=== PATIENT | female | born 1945 | race Caucasian/White ===

== ENCOUNTER → 2018-09-01 06:03 | Outpatient (CLI) | payer MEDICARE, SELFPAY ==
--- NOTE | 2018-09-01 | DI.US.S_ITS ---
PROCEDURE: US EXTREMITY NONVASC LOWER RT INDICATIONS: POSSIBLE DAS'S CYST RIGHT KNEE TECHNIQUE: Real-time scanning was performed of the posterior right knee, with image documentation. COMPARISON: None. FINDINGS: Ultrasound examination of right popliteal fossa shows no fluid collection or solid-appearing mass. IMPRESSION: No popliteal cyst or solid mass is seen in popliteal fossa. The Dictated by: Robbie Pineda M.D. on 09/01/2018 at 10:10 Approved by: Robbie Pineda M.D. on 09/01/2018 at 10:14
--- NOTE | 2018-09-01 | DI.MRI.S_ITS ---
PROCEDURE: MR LUMBAR SPINE WO CON INDICATIONS: POSSIBLE DAS'S CYST RIGHT KNEE TECHNIQUE: Noncontrast sagittal T1 spin echo and T2 fast echo, sagittal STIR, axial T1 and T2 fast spin echo through the lumbar spine. In cases with scoliosis, additional coronal T2 fast spin echo may be performed. COMPARISON: [facility], , L-SPINE WITHOUT CONTRAST, 01/24/2017, 12:48. FINDINGS: Image quality: Excellent. Alignment and Curvature: There is grade 1 anterolisthesis of L4 on L5, unchanged from previous study. Minimal anterolisthesis of L5 on S1 is also seen and unchanged. Bone Marrow: Marrow is of normal overall signal. No acute vertebral body compression fractures. Spinal Cord: Conus medullaris terminates at the L1 level. Visualized cord demonstrates normal signal and size. Paraspinous Soft Tissues: No paravertebral masses. L1-L2: Normal appearance. L2-L3: Normal appearance. L3-L4: Minimal disc bulge and bilateral facet arthrosis is seen, no significant canal stenosis or neural foramina narrowing. L4-L5: There is broad-based disc bulge and bilateral facet arthrosis causing mild central canal stenosis and bilateral neuroforaminal narrowing slightly worse on the right side progressed since 2017 study. L5-S1: There is broad-based disc bulge and bilateral facet arthrosis. No significant central canal stenosis. Left worsening right bilateral neuroforaminal narrowing is again seen, not significantly changed from prior study. IMPRESSION: 1. Worsening degenerative disc bulge and bilateral facet arthrosis at L4-5 level causing mild central canal stenosis and moderate bilateral neuroforaminal narrowing. 2. Stable appearing degenerative disc bulge and bilateral facet arthrosis at L3-4 and L5-S1 levels. Mild central canal stenosis and moderate to severe bilateral neuroforaminal narrowing at L5-S1 level is again seen and unchanged. 3. Stable appearing grade 1 anterolisthesis at L4-5 and L5-S1 levels. No marrow edema. No compression fracture. Dictated by: Robbie Pineda M.D. on 09/01/2018 at 11:46 Approved by: Robbie Pineda M.D. on 09/01/2018 at 11:56
== END ==
PROVIDERS: PCP Registered Nurse; Visit Provider Registered Nurse
DX: M51.26 Other intervertebral disc displacement, lumbar region (principal); M51.27 Other intervertebral disc displacement, lumbosacral region; M47.816 Spondylosis without myelopathy or radiculopathy, lumbar region; M47.817 Spondylosis without myelopathy or radiculopathy, lumbosacral region; M48.061 Spinal stenosis, lumbar region without neurogenic claudication; M48.07 Spinal stenosis, lumbosacral region; M43.16 Spondylolisthesis, lumbar region; M43.17 Spondylolisthesis, lumbosacral region
CPT/HCPCS: 72148; 76882

== ENCOUNTER 2019-02-07 09:59 | Inpatient (IN) | payer MEDICARE, SELFPAY ==
[2019-01-23 08:58] VITALS: BMI 40.7
[2019-02-07] VITALS (16 sets, daily range): BP systolic 94–156; BP diastolic 54–96; PULSE 69–79; RESP 10–19; TEMP 36.1–37; O2SAT 93–100; BMI 40.7
--- NOTE | 2019-02-07 | DI.RAD.S_ITS ---
PROCEDURE: XR LUMBAR SPINE 2-3V INDICATIONS: L4-5, L5-S1 TLIF TECHNIQUE: 2 operative views of the lumbar spine were acquired. COMPARISON: [facility], CR, XR LUMBAR SPINE FLEXION EXTENSION, 10/03/2018, 6:59. FINDINGS: Operative images demonstrate posterolateral reji and pedicle screw fixation from L4-S1 with placement of interbody material at L4-L5 and L5-S1. There is no radiographic evidence of complications. IMPRESSION: Operative imaging utilized during L4-S1 fusion. Dictated by: Shashi Cornejo M.D. on 02/07/2019 at 18:10 Approved by: Shashi Cornejo M.D. on 02/07/2019 at 18:11
--- NOTE | 2019-02-07 13:23 | PM.PREOP ---
Pre-operative Note Interval Note History & Physical reviewed/Exam performed by Physician: Yes Changes to H&P: No
[2019-02-07] MEDS: CEFAZOLIN 2 GM/100 ML FROZ.PIGGY IV ×2 (14:10→20:57)
--- NOTE | 2019-02-07 15:03 | SUR.OPER ---
Prone on spine table, head in foam head support, padded chest and pelvic supports, gel pad at knees, lower legs supported by pillows; nipples, genitalia and toes free of pressure, arms secured on foam padded arm boards at <90 degrees abduction. Tape over blanket at thigh secured to table.
[2019-02-07] MEDS: BUPIVACAINE LIPOSOME 266 MG/20 ML VIAL INJ (15:08)
[2019-02-07] MEDS: BUPIVACAINE 0.25% W/ EPI 30 ML VIAL INJ (15:09)
[2019-02-07] MEDS: ACETAMINOPHEN IV 1,000 MG/100 ML VIAL 400 MG IV (15:10)
[2019-02-07] MEDS: fentaNYL 100 MCG/2 ML INJ 50 MCG IV ×2 (18:29→18:35)
--- NOTE | 2019-02-07 18:29 | P.OP_ITS ---
Operative Date/Time/Diagnoses Date of procedure: 02/07/19 Time of procedure: 14:29 Pre-op diagnosis: 1. L4-5, L5-S1 spinal stenosis 2. L4-5, L5-S1 spondylolisthesis Post-op diagnosis: same Procedure & Clinicians Procedure: 1. L4-5, L5-S1 Postero-lateral and posterior interbody fusion 2. L4-5, L5-S1 interbody cage placement. 3. L4-5, L5-S1 decompressive laminectomy with bilateral facetecomies 4. L4-5, L5-S1 Posterior segmental instrumentation 5. [place] of bone marrow from iliac crest 6. Utilization of microsurgical technique and operating microscope Same procedure as scheduled: Yes Indications: Patient has been having chronic back pain and worsening lumbar radiculopathy. Patient failed multiple conservative management with worsening pain weakness and numbness in her lower extremity. Patient has been having difficulty performing activity of daily living. After discussing risks benefits of treatment options, patient elected proceed with surgery. Surgeon: Carol Ann Talley [employer] Director: Chastity Mcpherson Click Yes if Unassisted: No Anesthesia Type: General Operative Notes Closure Type: primary Specimen(s): none sent Prosthetic devices, grafts, tissues, transplants, or devices: Globus revolve screws, Rise cages Applied: catheter Estimated Blood Loss (mL): 100 Blood products transfused: none Procedure in detail: Patient was seen in the preoperative area. Risks and benefits of the surgery was discussed with the patient. Informed consent was obtained from the patient and placed in the chart. Surgical site was marked. Patient was taken to the operative room. General anesthesia was administered. Prophylactic antibiotic was given to the patient less than 30 min before the incision was made. Patient was placed into a prone position on the Jhoan table. Patient's back was then prepped and draped in the sterile fashion. Time- out was performed at this time. Using AP and lateral C-arm imaging the interval between L4-S1 was identified and marked on patient's back. A 2 inch incision 2 in from midline was made on the right side first. The fascia was incised in line with skin incision. Globus MARS retractors was placed inside the incision and docked onto the L4 and L5 lamina. Using microsurgical technique and operating microscope, a L4 and L5 laminectomy and L4-5 L5-S1 facetectomy was performed using a Kerrison rongeur. During the process of decompression more than 75% of bilateral L4-5 L5-S1 facets were removed in order to decompress the spinal canal and the lateral recess. The L4-5 L5-S1 level was grossly unstable after the decompression was completed and requiring the fusion procedure. The disc space at L4-5, L5-S1 was identified. And a total diskectomy was performed at L4-5, L5-S1 level. The endplates were decorticated using a rasp and shaver. The total diskectomy and d ecortication was performed at L4-5, L5-S1 level in order to to accomplish a L4- 5, L5-S1 fusion. The local bone from the laminectomy and facetectomy was saved for local bone grafting. After the total diskectomy and decortication was completed, Bio4 bone graft material was combined with local bone that was harvested earlier. At this time, a separate skin is incision was made over the iliac crest. A Jamshidi needle was inserted into the iliac crest through a separate skin incision. 5 cc of bone marrow aspiration was obtained through the separate skin incision using a Jamshidi needle from the iliac crest. The bone marrow aspiration was combined with local bone and the Bio4 bone grafting material. The bone grafting material was placed into the L4-5, L5-S1 interbody space along with two cages, one expandable cage at each level. The cages were expanded to their maximum height using the torque limiting screwdriver. At this time a mirror image incision was made on the left side. The fascia was incised in line with the skin incision. Globus MARS retractor was inserted and docked onto the L4-5, L5-S1 posterolateral gutter. Using the power drill, posterior-lateral decortication was performed at L4-5, L5-S1 level until bleeding cortical bone was identified. The remaining bone grafting material was placed into the L4-5 L5-S1 posterior lateral gutter he order to accomplish posterolateral fusion at the L4-5 L5-S1 levels. Using the double C-arm technique, pedicle screws were placed into the L4, L5, S1 pedicles bilaterally. This was done by placing the Jamshidi needle into the pedi cles, then placing the guidewires over the Jamshidi needle, and finally placing the cannulated screws over the guidewires bilaterally. After the pedicle screws were placed, 2 titanium rods was locked into the heads of the pedicle screws using locking caps and torque limiting screwdriver. Total 6 pedicles screws were placed. Threaded reducers were used to reduce patient's spondylolisthesis, which were appropriately reduced after the hardware was placed. After all the hardware was placed, and confirmed with AP and lateral C-arm imaging, the wound was then irrigated with sterile normal saline and packed with Ray-Ella gauze for 3 min to accomplish hemostasis. After the gauze was removed the deep fascia was closed with #1 Vicryl suture. The subcutaneous layer was closed with 2-0 Vicryl. The skin was closed with skin nedra. Patient tolerated the procedure well. There were no complications. Complications: none Post-operative Condition: stable Disposition: PACU Plan for aftercare: Admit to inpatient hospital
[2019-02-07] MEDS: SODIUM CHLORIDE 0.9% 1,000 ML 100 ML IV (19:40)
[2019-02-07] MEDS: OXYCODONE IR 5 MG TABLET 10 MG PO ×2 (19:42→22:47)
[2019-02-07] MEDS: SENNOSIDES 8.6 MG TABLET 17.2 MG PO (20:57)
[2019-02-07] MEDS: DOCUSATE 100 MG CAPSULE PO (20:57)
[2019-02-07] MEDS: HYDROMORPHONE 0.5 MG INJ IV (20:57)
--- NOTE | 2019-02-07 22:20 | PC.NURSE ---
Evening Shift Note- Patient arrived to room via bed from PACU at 1910. Admission questions completed, medications reviewed, and physical assessment done. patient oriented to bed and bed controls, room, bathroom, lights, phone, menu, and call ventura/tv remote. safety measures in place. call ventura and phone within reach. will continue to monitor.
[2019-02-07] MEDS: hydrOXYzine pamoate 25 MG CAPSULE PO (22:47)
[2019-02-08] VITALS (9 sets, daily range): BP systolic 108–142; BP diastolic 45–69; PULSE 59–86; RESP 16–18; TEMP 36.4–37.9; O2SAT 89–100
[2019-02-08] MEDS: OXYCODONE IR 5 MG TABLET 10 MG PO ×6 (03:40→22:27)
[2019-02-08] MEDS: CEFAZOLIN 2 GM/100 ML FROZ.PIGGY IV (05:21)
[2019-02-08 06:15] LABS: Hematocrit 36.4 % (36-46); Hemoglobin 12.4 g/dL (12.0-16.0)
[2019-02-08] MEDS: DOCUSATE 100 MG CAPSULE PO ×2 (08:44→20:25)
[2019-02-08] MEDS: LOSARTAN 50 MG TABLET 100 MG PO (08:45)
[2019-02-08] MEDS: hydroCHLOROthiazide 25 MG TABLET PO (08:45)
[2019-02-08] MEDS: PANTOPRAZOLE 20 MG TABLET PO (08:45)
--- NOTE | 2019-02-08 10:28 | PM.PNPO.1 ---
Subjective Subjective Date Patient Seen: 02/08/19 Time Patient Seen: 10:28 Interval history: Hospital day 2, postop day 1 following L4-5, L5-S1 laminectomy, TLIF, cage, posterior screw fixation by Dr. Talley. She has remained stable postoperatively. She states that her preoperative right leg pain has improved since surgery. She is getting oxycodone 10 mg for pain and occasional Dilaudid IV for breakthrough pain. She has not had physical therapy yet. She anticipated 2 night stay in the hospital. Plans to go home with her and daughter helping her. Exam Vital Signs (past 8 hours): - 02/08/19 03:48 02/08/19 07:24 02/08/19 07:40 Temperature 98.3 F 97.6 F Pulse Rate 62 59 L 61 Respiratory Rate 16 16 Blood Pressure 131/65 123/50 L Pulse Oximetry 100 100 100 02/08/19 07:55 Temperature Pulse Rate Respiratory Rate Blood Pressure Pulse Oximetry 97 Fraction of Inspired Oxygen 21 Oxygen Delivery Method Room Air Oxygen Flow Rate 0 Narrative Exam Narrative: Alert, oriented no acute distress resting in bed. Back. Dressing to lumbar area is dry without drainage or inflammation. Legs. No calf pain or swelling. Pulses symmetrical. Good sensation to lower legs to touch. Good strength on foot dorsiflexion plantar flexion bilateral. Objective Labs Result Diagrams: 02/08/19 05:56 Labs: Laboratory Results - last 24 hr 02/08/19 05:56 Hgb 12.4 Hct 36.4 Assessment & Plan Post-op Postoperative Procedures: Procedures Operation Date: 02/07/19 12:15 Actual Procedures Side Surgeon p L4-5,L5-S1 TRANSFORAMINAL LUMBAR INTERBODY FUSION WITH POSTERIOR INSTRUMENTATION Carol Ann Talley MD Plan: Patient will work with physical therapy today. Observe for further improvement in pain and function. Anticipate discharge home tomorrow if she is stable.
--- NOTE | 2019-02-08 11:01 | PT.IIE ---
Current Diagnoses Spondylolisthesis, lumbosacral region (02/07/19) Spinal stenosis, lumbar region without neurogenic claudication (02/07/19) Postlaminectomy syndrome, not elsewhere classified (02/07/19) Surgery Performed Operation Date: 02/07/19 12:15 Actual Procedures p L4-5,L5-S1 TRANSFORAMINAL LUMBAR INTERBODY FUSION WITH POSTERIOR INSTRUMENTATION - Carol Ann Talley MD Surgical History (Last Updated 01/23/19 @ 09:17 by Mary Rodriguez RN) Hx of appendectomy (Acute) Hx of exploratory laparotomy (Acute) Hx of foot surgery (Acute) Hx of thumb surgery (Acute) Medical History (Last Updated 01/23/19 @ 09:17 by aMry Rodriguez RN) CKD (chronic kidney disease), stage III (Acute) Cyst (Acute 04/29/15) Diaphragmatic hernia (Acute) Former smoker (Acute) GERD without esophagitis (Acute) H/O: hysterectomy (Acute) Hearing loss (Acute) HLD (hyperlipidemia) (Acute) HTN (hypertension) (Acute) Neurogenic claudication (Acute) KASI on CPAP (Acute) Osteopenia (Acute) Plantar fascial fibromatosis (Acute) Spinal stenosis (Acute) Physical Therapy Inpatient Evaluation/Re-Eval M1 PT/OT-IP Prior Functional Status Start: 02/08/19 08:50 Freq: NEEDED Status: Active Protocol: Document 02/08/19 10:45 AW (Rec: 02/08/19 11:01 AW [id number]) Medical Review Prior Functional Status Medical History Reviewed Yes Diet/Fluid Consistency Regular Communication Able to make needs known Mobility and Gait Pt was independent with no assistive device Activities of Daily Living and IADL's Independent Social History Household Members spouse Living Arrangements House Number of Floors (Floors) One Floor Number of Stairs To Enter/Railing? 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 Pt reports spouse has dementia, provides much assistance with cleaning and laundry chores M2 PT-IP Current Condition Start: 02/08/19 08:50 Freq: NEEDED Status: Active Protocol: Document 02/08/19 10:45 AW (Rec: 02/08/19 11:01 AW [id number]) Physical Therapy Current Condition Current Condition Evaluation Date 02/08/19 Treatment Diagnosis s/p L4-5, L5-S1 laminectomy, TLIF; impaired transfers and gait Precautions Lumbar Precautions Log Roll,No Twisting,Limit Bending,Lifting Restriction of 10 lbs,Gait Belt above Incisional Area Weight Bearing Status Weight Bearing Status Full Weight Bearing M3 PT-IP Subjective Start: 02/08/19 08:50 Freq: NEEDED Status: Active Protocol: Document 02/08/19 10:45 AW (Rec: 02/08/19 11:01 AW [id number]) Subjective Physical Therapy Visit Type Type Initial Evaluation Visit Start Time 09:45 Visit Stop Time 10:08 Total Visit Minutes 23 Number of DIRECTOR OF EVENT SALES Visits 0 Physical Therapy Visit Comments Patient Comments Pt resting comfortably in bed, willing to participate in therapy evaluation Patient Goals I want to go home Therapy Pain Assessment Pain When Pain Assessed During Mobility Pain Present Pain Present Pain Reported Location Back Intensity 5 Scale Used Numeric (1 - 10) Pain Management Techniques Modification of Treatment,Re- positioning,Timing of Activity with Medications M4 PT-IP Mobility and Gait Start: 02/08/19 08:50 Freq: NEEDED Status: Active Protocol: Document 02/08/19 10:45 AW (Rec: 02/08/19 11:01 AW [id number]) PT-Bed Mobility Assessment Rolling Type of Rolling Log Rolling Level of Assist Standby Assistance Supine to Sit Supine to Sit Standby Assistance Scooting Scooting to Edge of Bed Standby Assistance PT-Transfer Assessment Sit to and From Stand Sit to and from Stand Standby Assistance Equipment Transfer Assistive Device Gait Belt,Front Wheeled Walker Orthotic/Prosthetic Devices or Brace: No Transfers Transfer Destination Chair Transfer Technique Stand Step Pivot Transfer Ability Level of Assist Standby Assistance Comments Mobility Comments Pt required SBA at most for transfers using FWW. Gait Assessment Gait Gait Assistance Required: Standby Assistance,Contact Guard Assist Distance (Feet) 300 Able to Maintain Weight Bearing Status Yes During Gait Assistive Devices Assistive Device Gait Belt,Front Wheeled Walker Orthotic/Prosthetic Devices or Brace: No Gait Deviations General Gait Pattern Decreased Feet Clearance, Flexed Trunk Factors Limiting Gait Function Factors Limiting Gait Function Decreased Activity Tolerance, Pain Comments Gait Comments Pt ambulated ~300 feet using FWW SBA. PT-Balance Assessment Sitting Balance and Reactions Static Sitting Balance Ability Good Dynamic Sitting Balance Ability Good Standing Balance and Reactions Static Standing Balance Ability Good Dynamic Standing Balance Ability Good M5 PT-IP Objective Assessments Start: 02/08/19 08:50 Freq: NEEDED Status: Active Protocol: Document 02/08/19 10:45 AW (Rec: 02/08/19 11:01 AW [id number]) Orientation Orientation/Cognition Level of Alertness Alert Orientation Name,Date,Place,Situation Language Function Ability No Deficits Noted Safety Awareness Understands Safety Issues Memory Description No Deficits Noted Comments Pt is pleasant, able to verbalize spinal surgery precautions, and exhibits good attention to safety Gross Range of Motion Upper Extremity ROM Assessment Within Functional Limits Lower Extremity ROM Assessment Within Functional Limits Strength Upper Extremity Strength Assessment Within Functional Limits Lower Extremity Strength Assessment Within Functional Limits Coordination Assessment Gross Coordination Gross Coordination WNL Sensation Assessment Sensation Gross Sensation WNL Muscle Tone Muscle Tone WNL Yes M6 PT-IP Treatment Start: 02/08/19 08:50 Freq: NEEDED Status: Active Protocol: Document 02/08/19 10:45 AW (Rec: 02/08/19 11:01 AW [id number]) Physical Therapy Treatment Education Education Provided Precautions,Weight Bearing Status,Post-Op Packet,Safety M7 PT-IP Assessment and Plan Start: 02/08/19 08:50 Freq: NEEDED Status: Active Protocol: Document 02/08/19 10:45 AW (Rec: 02/08/19 11:01 AW [id number]) PT Summary Assessment and Plan Potential Rehabilitation Potential Excellent Status of Condition at Evaluation Evolving Summary Impairments Pain,Strength,Bed Mobility, Transfers,Gait,Activity Tolerance Assessment Summary Pt is a 74 yo woman with history of L5 laminectomy, chronic LBP, osteoporosis, and CKD stage 3. PLOF: Pt lives with her spouse, independent with all functional mobility without assistive device and independent with ADL's. CLOF: Pt was seen on POD1 following L4-5, L5-S1 laminectomy, TLIF. Provided education on back precautions, log roll for bed mobility, and safety. Pt required no more than SBA for all transfers and gait, and no cues to avoid bending, twisting, lifting. PT recommends discharge to home with assistance from pt's daughter who is available to stay with her until Tuesday and from her neighbor who is an RN and will check on her at least daily after her daughter leaves. Goals Bed Mobility Goal Independent Transfer Goal Independent Gait Goal Independent Gait Distance 400 Other Goals up/down 5 stairs with bilateral rails for safe entry to home. Frequency of Treatment Frequency Of Treatment Twice a Day Treatment Plan Physical Therapy Treatment Plan Bed Mobility Training,Transfer Training,Gait Training, Therapeutic Exercise,Balance Retraining,Post Op Education, Discharge Planning,Hot or Cold Pack,Neuromuscular Re-ed, Coordination Retraining,Manual Therapy Other Recommendations and Next Treatment stairs Focus Recommendations To Nursing Amount of Assist Needed Standby Assistance Discharge Recommendations PT Discharge Recommendations Home with Assistance
[2019-02-08] MEDS: hydrOXYzine pamoate 25 MG CAPSULE PO ×2 (12:38→22:27)
[2019-02-08] MEDS: SODIUM CHLORIDE 0.9% FLUSH 10 ML IV ×2 (14:13→20:25)
[2019-02-08] MEDS: HYDROMORPHONE 0.5 MG INJ IV ×2 (14:13→20:24)
--- NOTE | 2019-02-08 14:58 | PT.IPTN ---
Current Diagnoses Spondylolisthesis, lumbosacral region (02/07/19) Spinal stenosis, lumbar region without neurogenic claudication (02/07/19) Postlaminectomy syndrome, not elsewhere classified (02/07/19) Surgery Performed Operation Date: 02/07/19 12:15 Actual Procedures p L4-5,L5-S1 TRANSFORAMINAL LUMBAR INTERBODY FUSION WITH POSTERIOR INSTRUMENTATION - Carol Ann Talley MD Physical Therapy Treatment Note M2 PT-IP Current Condition Start: 02/08/19 08:50 Freq: NEEDED Status: Active Protocol: Document 02/08/19 10:45 AW (Rec: 02/08/19 11:01 AW [id number]) Physical Therapy Current Condition Current Condition Evaluation Date 02/08/19 Treatment Diagnosis s/p L4-5, L5-S1 laminectomy, TLIF; impaired transfers and gait Precautions Lumbar Precautions Log Roll,No Twisting,Limit Bending,Lifting Restriction of 10 lbs,Gait Belt above Incisional Area Weight Bearing Status Weight Bearing Status Full Weight Bearing M3 PT-IP Subjective Start: 02/08/19 08:50 Freq: NEEDED Status: Active Protocol: Document 02/08/19 14:49 AW (Rec: 02/08/19 14:58 AW [id number]) Subjective Physical Therapy Visit Type Type Treatment Note Visit Start Time 14:33 Visit Stop Time 14:47 Total Visit Minutes 14 Number of PLAYBACK OPERATOR Visits 0 Physical Therapy Visit Comments Patient Comments Pt on toilet when PT entered room. She is complaining of increased pain and fatigue. Therapy Pain Assessment Pain When Pain Assessed During Mobility Pain Present Pain Present Pain Reported Location Back Intensity 7 Scale Used Numeric (1 - 10) Pain Management Techniques Modification of Treatment,Re- positioning,Timing of Activity with Medications M4 PT-IP Mobility and Gait Start: 02/08/19 08:50 Freq: NEEDED Status: Active Protocol: Document 02/08/19 14:49 AW (Rec: 02/08/19 14:58 AW [id number]) PT-Bed Mobility Assessment Rolling Type of Rolling Log Rolling Level of Assist Contact Guard Assistance Sit to Supine Sit to Supine Contact Guard Assistance PT-Transfer Assessment Sit to and From Stand Sit to and from Stand Contact Guard Assistance Equipment Transfer Assistive Device Gait Belt,Front Wheeled Walker Orthotic/Prosthetic Devices or Brace: No Transfers Transfer Destination Bed Transfer Technique pt ambulated from toilet to sink to bed using FWW CGA Transfer Ability Level of Assist Contact Guard Assistance Comments Mobility Comments Pt requiring increased level of assist due to escalating pain Gait Assessment Gait Gait Assistance Required: Standby Assistance,Contact Guard Assist Distance (Feet) 20 Able to Maintain Weight Bearing Status Yes During Gait Assistive Devices Assistive Device Gait Belt,Front Wheeled Walker Orthotic/Prosthetic Devices or Brace: No Gait Deviations General Gait Pattern Decreased Stride Length, Decreased Feet Clearance, Flexed Trunk Factors Limiting Gait Function Factors Limiting Gait Function Decreased Activity Tolerance, Pain Comments Gait Comments Pt with increased pain this session, limiting ambulation Stair Climbing Assessment Comments Stair Climbing Comments unable to assess at this time due to pain M5 PT-IP Objective Assessments Start: 02/08/19 08:50 Freq: NEEDED Status: Active Protocol: Document 02/08/19 10:45 AW (Rec: 02/08/19 11:01 AW [id number]) Orientation Orientation/Cognition Level of Alertness Alert Orientation Name,Date,Place,Situation Language Function Ability No Deficits Noted Safety Awareness Understands Safety Issues Memory Description No Deficits Noted Comments Pt is pleasant, able to verbalize spinal surgery precautions, and exhibits good attention to safety Gross Range of Motion Upper Extremity ROM Assessment Within Functional Limits Lower Extremity ROM Assessment Within Functional Limits Strength Upper Extremity Strength Assessment Within Functional Limits Lower Extremity Strength Assessment Within Functional Limits Coordination Assessment Gross Coordination Gross Coordination WNL Sensation Assessment Sensation Gross Sensation WNL Muscle Tone Muscle Tone WNL Yes M6 PT-IP Treatment Start: 02/08/19 08:50 Freq: NEEDED Status: Active Protocol: Document 02/08/19 10:45 AW (Rec: 02/08/19 11:01 AW [id number]) Physical Therapy Treatment Education Education Provided Precautions,Weight Bearing Status,Post-Op Packet,Safety M7 PT-IP Assessment and Plan Start: 02/08/19 08:50 Freq: NEEDED Status: Active Protocol: Document 02/08/19 14:49 AW (Rec: 02/08/19 14:58 AW [id number]) PT Summary Assessment and Plan Summary Assessment Summary Pt required increased level of assist for bed mobility, transfers, and gait secondary to increase in pain. She fatigued rapidly with short bout ambulation. PT saw pt 20- 30 minutes after IV Dilaudid was administered. She complained of lightheadedness and nausea while standing at the sink which did not chester with sitting. BP at that time was 97/50. RN was notified. Pt left visiting with family, call light and emesis bag within reach, 3 rails up, bed alarm armed. Will follow up in the morning. Goals Bed Mobility Goal Independent Transfer Goal Independent Gait Goal Independent Gait Distance 400 Other Goals up/down 5 stairs with bilateral rails for safe entry to home. Frequency of Treatment Frequency Of Treatment Twice a Day Treatment Plan Physical Therapy Treatment Plan Bed Mobility Training,Transfer Training,Gait Training, Therapeutic Exercise,Balance Retraining,Post Op Education, Discharge Planning,Hot or Cold Pack,Neuromuscular Re-ed, Coordination Retraining,Manual Therapy Other Recommendations and Next Treatment stairs Focus Recommendations To Nursing Amount of Assist Needed Standby Assistance,1 Person Assist Discharge Recommendations PT Discharge Recommendations Home with Assistance
--- NOTE | 2019-02-08 15:37 | CM.IDA ---
Initial DCP Assessment Note: Pt is a 74 yo female, resident of [facility]. Pt is POD#1 from spinal surgery w/Dr Talley. PCP: Yisel Yoder Payer: Medicare/[employer]ARP Reviewed chart. Pt has been cleared by therapy team to return home, and pt has planned for return home w/her dtr and neighbor/friend (an RN) to assist once home. Pt cares for her spouse who has dementia, pt is indp. w/ all ADLs at her baseline. P: DC expected Tuesday02.08.19 back home w/family assist and outpt f/u as ordered by Ortho team. No needs expected from this QUICK TECHNICIAN before pt's DC but will remain available in case this changes. KALI Rider Discharge Planning/Care Management CM Discharge Assessment Start: 02/08/19 15:35 Freq: Status: Active Protocol: Document 02/08/19 15:35 FELICIA (Rec: 02/08/19 15:37 FELICIA [id number]) Discharge Planning Assessment Assigned Insurance Claims Examiner KALI Salas DPOA/Assigned Designee Name Lwoell (sakshi) Claudia ( daughter) Contact Information Lowell: [phone] Claudia: [phone] Advance Directives? Yes: Living will Advance Directives on File No History Provided By Patient,Medical Record Prior Living Arrangements House Household Members spouse Independent with ADL's Yes Is patient alert and oriented? Yes Caregiver for Another Yes: Spouse has dementia Discharge Plan Home Transportation Arrangement family Pov Review Status In Process
[2019-02-08] MEDS: SENNOSIDES 8.6 MG TABLET 17.2 MG PO (20:25)
[2019-02-08] MEDS: ACETAMINOPHEN 325 MG TABLET 650 MG PO (20:29)
[2019-02-09] VITALS (7 sets, daily range): BP systolic 108–140; BP diastolic 46–62; PULSE 69–83; RESP 16–22; TEMP 36.6–37.2; O2SAT 92–95
--- NOTE | 2019-02-09 01:48 | PC.NURSE ---
CPAP placed by RT. Sats were consistently 90-91% on CPAP. Took off CPAP, and placed on 2L per nc. sats 95%
[2019-02-09] MEDS: OXYCODONE IR 5 MG TABLET 10 MG PO ×6 (03:33→21:13)
[2019-02-09] MEDS: SODIUM CHLORIDE 0.9% FLUSH 10 ML IV ×2 (08:10→21:13)
[2019-02-09] MEDS: DOCUSATE 100 MG CAPSULE PO ×2 (08:12→21:12)
[2019-02-09] MEDS: PANTOPRAZOLE 20 MG TABLET PO (08:12)
[2019-02-09] MEDS: hydroCHLOROthiazide 25 MG TABLET PO (08:12)
[2019-02-09] MEDS: CHOLECALCIFEROL (VITAMIN D3) 5,000 UNIT TABLET 5000 UNIT PO (08:12)
[2019-02-09] MEDS: LOSARTAN 50 MG TABLET 100 MG PO (08:12)
[2019-02-09] MEDS: FENOFIBRATE 160 MG TABLET PO (08:12)
[2019-02-09] MEDS: hydrOXYzine pamoate 25 MG CAPSULE PO ×2 (08:20→12:13)
--- NOTE | 2019-02-09 09:04 | OT.IP.EVAL ---
Current Diagnoses Spondylolisthesis, lumbosacral region (02/07/19) Spinal stenosis, lumbar region without neurogenic claudication (02/07/19) Postlaminectomy syndrome, not elsewhere classified (02/07/19) Surgery Performed Operation Date: 02/07/19 12:15 Actual Procedures p L4-5,L5-S1 TRANSFORAMINAL LUMBAR INTERBODY FUSION WITH POSTERIOR INSTRUMENTATION - Carol Ann Talley MD Past Medical History (Last Updated 01/23/19 @ 09:17 by Mary Rodriguez RN) CKD (chronic kidney disease), stage III (Acute) Cyst (Acute 04/29/15) Diaphragmatic hernia (Acute) Former smoker (Acute) GERD without esophagitis (Acute) H/O: hysterectomy (Acute) Hearing loss (Acute) HLD (hyperlipidemia) (Acute) HTN (hypertension) (Acute) Neurogenic claudication (Acute) KASI on CPAP (Acute) Osteopenia (Acute) Plantar fascial fibromatosis (Acute) Spinal stenosis (Acute) Surgical History (Last Updated 01/23/19 @ 09:17 by Mary Rodriguez RN) Hx of appendectomy (Acute) Hx of exploratory laparotomy (Acute) Hx of foot surgery (Acute) Hx of thumb surgery (Acute) Occupational Therapy Inpatient Evaluation/Re-Eval M1 PT/OT-IP Prior Functional Status Start: 02/09/19 08:34 Freq: NEEDED Status: Active Protocol: Document 02/09/19 08:34 [facility] (Rec: 02/09/19 09:04 [facility] [id number]) Medical Review Prior Functional Status Medical History Reviewed Yes Diet/Fluid Consistency Regular Communication Able to make needs known Mobility and Gait Pt was independent with no assistive device Activities of Daily Living and IADL's Independent Social History Household Members spouse Living Arrangements House Number of Floors (Floors) One Floor Number of Stairs To Enter/Railing? 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 Pt reports spouse has dementia, provides much assistance with cleaning and laundry chores. Pt's daughter to be staying until Tuesday to assist and afterwards neighbor to help on a daily basis. M2 OT-IP Current Condition Start: 02/09/19 08:34 Freq: Status: Active Protocol: Document 02/09/19 08:34 [facility] (Rec: 02/09/19 09:04 [facility] [id number]) Occupational Therapy Current Condition Current Condition Evaluation Date 02/09/19 Treatment Diagnosis L4-5, L5-S1, laminectomy TLIF, decreased mobility and self care Diagnosis Onset Date 02/07/19 Post Operative Precautions Lumbar Precautions Log Roll,No Twisting,Limit Bending,Lifting Restriction of 10 lbs,Gait Belt above Incisional Area Weight Bearing Status Weight Bearing Status Weight Bear as Tolerated M3 OT- IP Subjective and Pain Start: 02/09/19 08:34 Freq: Status: Active Protocol: Document 02/09/19 08:34 [facility] (Rec: 02/09/19 09:04 [facility] [id number]) OT- Subjective Occupational Therapy Visit Type Type Initial Evaluation Visit Start Time 07:50 Visit Stop Time 08:13 Total Visit Minutes 23 Occupational Therapy Visit Comments Patient Comments Pt wanting to use the bathroom and get up for breakfast. Patient/Caregiver Goals Pt wanting to go home today. OT Pain Assessment Pain When Pain Assessed At Rest Pain Present Pain Present Pain Reported Location Back Intensity 9 Scale Used Numeric (1 - 10) Description Throbbing Pain Behaviors Facial Grimacing M4 OT- IP ADL's Start: 02/09/19 08:34 Freq: Status: Active Protocol: Document 02/09/19 08:34 [facility] (Rec: 02/09/19 09:04 [facility] [id number]) OT ADL-Grooming General Evaluation Grooming Ability Standby Assistance Areas Needing Assistance Retrieving/Set-up of Grooming Items Comments OT Grooming Comments Pt able to stand with FWW for grooming needs. OT ADL-Dressing General Eval Lower Body Dressing Ability Maximum Assistance Areas Needing Assistance Retrieving/Set-up of Clothing, Socks Comments OT Dressing Comments Pt has janitorial assistant and long handle shoe horn at home and does not wear socks. OT ADL-Toileting General Evaluation Toileting Ability Standby Assistance Devices Toileting Assistive Devices Grab Bars Comments OT Toileting Comments pt heavily relies on grab bars to get up and down form the toilet. Pt able to wipe following back precautions by standing and able to reach behind. Suggested wipes can be helpful. OT ADL-Bathing Comments OT Bathing Comments Pt states has a built in seat for walk in shower and grab bras at home. M5 OT- IP IADL's Start: 02/09/19 08:34 Freq: Status: Active Protocol: Document 02/09/19 08:34 [facility] (Rec: 02/09/19 09:04 [facility] [id number]) OT-Instrumental Activities of Daily Living Home Safety Awareness Awareness of Need for Assistance at Home Good Awareness Ability to Problem Solve Emergency Able to Problem Solve Situations Home Safety Comments Pt's able to lift and do IADL needs and daughter to be there to assist until Tuesday. Meal Preparation Meal Preparation Caregiver Provides Assist Hyperion Administrator Hyperion Administrator Caregiver Provides Assist M6 OT- IP Functional Cognition Start: 02/09/19 08:34 Freq: Status: Active Protocol: Document 02/09/19 08:34 [facility] (Rec: 02/09/19 09:04 [facility] [id number]) Cognitive Factors Limiting Selfcare Function Cognitive Ability Level of Alertness Alert Patient Orientation Name,Age,Birthday,Month,Date, Year,Day of Week,Place, Situation Attention Span Ability Capable of Focused Attention, Capable of Sustained Attention Ability to Follow Commands Able to Follow Multi-Step Commands Memory Description Short Term Impaired Safety Awareness Decreased Ability to Apply Precautions Problem Solving Ability Needs Assist to Identify Solutions Cognitive Comments Cognitive Assessment Comments Initially pt only able to identify 2/3 back precautions. After education , pt able to show good safety and understanding for needs. OT- Vision and Hearing OT- Hearing Assessment OT- Hearing Assessment WFL OT- Vision Assessment Visual Acuity Contact Lenses M7 OT- IP Mobility and Balance Start: 02/09/19 08:34 Freq: Status: Active Protocol: Document 02/09/19 08:34 [facility] (Rec: 02/09/19 09:04 [facility] [id number]) OT- Bed Mobility Assessment Rolling Type of Rolling Roll to Left Level of Assistance Standby Assistance Supine to Sit Supine to Sit Assist Maximum Assistance,1 Person Assistance Scooting Scooting to Edge of Bed Moderate Assistance,1 Person Assistance OT-Transfer Assessment Sit to and From Stand Sit to and from Stand Contact Guard Assistance,1 Person Assistance Transfers Transfer Ability Standby Assistance,Contact Guard Assistance,1 Person Assistance Technique Transfer Destination Bed,Chair,Toilet Transfer Technique Stand Step Pivot Devices Transfer Assistive Devices Gait Belt,Front Wheeled Walker Comments Mobility Comments Pt needing MAX A to help get up from the bed. Pt having to get up to use the bathroom and at the time easier to roll left to get to the edge of the bed. Normally pt rolls to the right. Spoke to AUTOMATIC FABRIC CUTTER regarding working on bed mobility move. Otherwise pt may benefit from bed rail. OT- Gait Assessment Gait Gait Assistance Required: Standby Assistance,Contact Guard Assist,1 Person Assist Comments Gait Ability Comments CGA-SBA with FWW with good safety. OT- Balance Assessment Sitting Balance and Reactions Static Sitting Balance Ability Normal Dynamic Sitting Balance Ability Good Standing Balance and Reactions Static Standing Balance Ability Good M8 OT- IP Objective Assessments Start: 02/09/19 08:34 Freq: Status: Active Protocol: Document 02/09/19 08:34 [facility] (Rec: 02/09/19 09:04 [facility] [id number]) OT Gross Range of Motion Upper Extremity Range of Motion Assessment Within Functional Limits OT Strength Upper Extremity Strength Assessment Within Functional Limits OT-Muscle Tone Assessment Muscle Tone WNL Yes M9 OT- IP Assessment and Plan Start: 02/09/19 08:34 Freq: Status: Active Protocol: Document 02/09/19 08:34 [facility] (Rec: 02/09/19 09:04 [facility] [id number]) OT Summary Assessment and Plan Potential Rehabilitation Potential Good Analytic Complexity at Evaluation Low Summary OT Impairments Pain,Functional Mobility, Dressing,Bathing,Shower Transfers Progress Towards Goals Progressing Toward Goals,Slow Progress due to Pain Assessment Summary Pt low complexity and main barrier are step and bed mobility needs. Pt will still benefit from education of back precautions for ADl needs . Pt has supportive and daughter to assist at home . Goals Grooming Goal Independent Dressing Goal Standby Assistance Toileting Goal Standby Assistance Bathing Goal Minimal Assistance Toilet Transfer Goal Standby Assistance Shower Transfer Goal Contact Guard Assistance Days to Meet Goals 3 Frequency of Treatment Frequency Of Treatment Once a Day Treatment Plan OT Treatment Plan ADL Training,Functional Cognition Training,Functional Mobility,Patient/Family Education,Discharge Planning Other Treatment Recommendations and Next Shower Treatment Focus Discharge Recommendations OT Discharge Recommendations Home with Assistance
--- NOTE | 2019-02-09 10:51 | PC.NURSE ---
Day Shift- Pt OOB with OT this AM, lower back pain 9/, pt appears very uncomfortable, pt given PRN Oxycodone and Vistaril. Assisted back to bed lying on side. Upon reassessment, pt appeared to be sleeping. Pain management plan for PRN meds when available. Lower back dressing of gauze and abd pad secured with paper tape as CDI. CMS+, PPP. BLE ankle edema puffy, non-pitting. Will continue to monitor.
--- NOTE | 2019-02-09 11:40 | PT.IPTN ---
Current Diagnoses Spondylolisthesis, lumbosacral region (02/07/19) Spinal stenosis, lumbar region without neurogenic claudication (02/07/19) Postlaminectomy syndrome, not elsewhere classified (02/07/19) Surgery Performed Operation Date: 02/07/19 12:15 Actual Procedures p L4-5,L5-S1 TRANSFORAMINAL LUMBAR INTERBODY FUSION WITH POSTERIOR INSTRUMENTATION - Carol Ann Talley MD Physical Therapy Treatment Note M2 PT-IP Current Condition Start: 02/08/19 08:50 Freq: NEEDED Status: Active Protocol: Document 02/08/19 10:45 AW (Rec: 02/08/19 11:01 AW [id number]) Physical Therapy Current Condition Current Condition Evaluation Date 02/08/19 Treatment Diagnosis s/p L4-5, L5-S1 laminectomy, TLIF; impaired transfers and gait Precautions Lumbar Precautions Log Roll,No Twisting,Limit Bending,Lifting Restriction of 10 lbs,Gait Belt above Incisional Area Weight Bearing Status Weight Bearing Status Full Weight Bearing M3 PT-IP Subjective Start: 02/08/19 08:50 Freq: NEEDED Status: Active Protocol: Document 02/09/19 11:45 [facility] (Rec: 02/09/19 11:58 [facility]GD [id number]) Subjective Physical Therapy Visit Type Type Treatment Note Visit Start Time 11:20 Visit Stop Time 11:43 Total Visit Minutes 23 Number of POWER LINEMAN Visits 1 Physical Therapy Visit Comments Patient Comments Pt states that she needs to use the bathroom. Therapy Pain Assessment Pain When Pain Assessed During Mobility Pain Present Pain Present Pain Reported M4 PT-IP Mobility and Gait Start: 02/08/19 08:50 Freq: NEEDED Status: Active Protocol: Document 02/09/19 11:45 [facility] (Rec: 02/09/19 11:58 GGD [id number]) PT-Bed Mobility Assessment Rolling Type of Rolling Log Rolling Level of Assist Contact Guard Assistance Supine to Sit Supine to Sit Moderate Assistance,1 Person Assistance,Bedrails PT-Transfer Assessment Sit to and From Stand Sit to and from Stand Contact Guard Assistance Equipment Transfer Assistive Device Gait Belt,Front Wheeled Walker Orthotic/Prosthetic Devices or Brace: No Transfers Transfer Destination Chair,Toilet Transfer Ability Level of Assist Contact Guard Assistance Gait Assessment Gait Gait Assistance Required: Standby Assistance,Contact Guard Assist Distance (Feet) 25 Able to Maintain Weight Bearing Status Yes During Gait Assistive Devices Assistive Device Gait Belt,Front Wheeled Walker Orthotic/Prosthetic Devices or Brace: No Gait Deviations General Gait Pattern Decreased Stride Length, Decreased Feet Clearance, Flexed Trunk Factors Limiting Gait Function Factors Limiting Gait Function Decreased Activity Tolerance, Pain M5 PT-IP Objective Assessments Start: 02/08/19 08:50 Freq: NEEDED Status: Active Protocol: Document 02/08/19 10:45 AW (Rec: 02/08/19 11:01 AW [id number]) Orientation Orientation/Cognition Level of Alertness Alert Orientation Name,Date,Place,Situation Language Function Ability No Deficits Noted Safety Awareness Understands Safety Issues Memory Description No Deficits Noted Comments Pt is pleasant, able to verbalize spinal surgery precautions, and exhibits good attention to safety Gross Range of Motion Upper Extremity ROM Assessment Within Functional Limits Lower Extremity ROM Assessment Within Functional Limits Strength Upper Extremity Strength Assessment Within Functional Limits Lower Extremity Strength Assessment Within Functional Limits Coordination Assessment Gross Coordination Gross Coordination WNL Sensation Assessment Sensation Gross Sensation WNL Muscle Tone Muscle Tone WNL Yes M6 PT-IP Treatment Start: 02/08/19 08:50 Freq: NEEDED Status: Active Protocol: Document 02/09/19 11:45 [facility] (Rec: 02/09/19 11:58 GGD [id number]) Physical Therapy Treatment Education Education Provided Precautions M7 PT-IP Assessment and Plan Start: 02/08/19 08:50 Freq: NEEDED Status: Active Protocol: Document 02/09/19 11:45 [facility] (Rec: 02/09/19 11:58 GGD [id number]) PT Summary Assessment and Plan Summary Assessment Summary Pt had increase in pain. She needed increase in assist with bed mobility. She does have a recliner at home that she is able to sleep in. She was safe with gait and transfers. Frequency of Treatment Frequency Of Treatment Twice a Day Treatment Plan Physical Therapy Treatment Plan Bed Mobility Training,Transfer Training,Gait Training, Therapeutic Exercise,Balance Retraining,Post Op Education, Discharge Planning,Hot or Cold Pack,Neuromuscular Re-ed, Coordination Retraining,Manual Therapy Other Recommendations and Next Treatment stairs Focus Recommendations To Nursing Amount of Assist Needed 1 Person Assist Discharge Recommendations PT Discharge Recommendations Home with Assistance
--- NOTE | 2019-02-09 13:10 | CM.DPC ---
Disc. planning note cont. PT completed their assessment this morning, recommendation continues to be for pt to d/c home with dtr and continuing her care/assistance at home. Anticipated d/c for tomorrow. No further d/c planning needs identified at this time.
--- NOTE | 2019-02-09 16:33 | PT.IPTN ---
Current Diagnoses Spondylolisthesis, lumbosacral region (02/07/19) Spinal stenosis, lumbar region without neurogenic claudication (02/07/19) Postlaminectomy syndrome, not elsewhere classified (02/07/19) Surgery Performed Operation Date: 02/07/19 12:15 Actual Procedures p L4-5,L5-S1 TRANSFORAMINAL LUMBAR INTERBODY FUSION WITH POSTERIOR INSTRUMENTATION - Carol Ann Talley MD Physical Therapy Treatment Note M2 PT-IP Current Condition Start: 02/08/19 08:50 Freq: NEEDED Status: Active Protocol: Document 02/08/19 10:45 AW (Rec: 02/08/19 11:01 AW [id number]) Physical Therapy Current Condition Current Condition Evaluation Date 02/08/19 Treatment Diagnosis s/p L4-5, L5-S1 laminectomy, TLIF; impaired transfers and gait Precautions Lumbar Precautions Log Roll,No Twisting,Limit Bending,Lifting Restriction of 10 lbs,Gait Belt above Incisional Area Weight Bearing Status Weight Bearing Status Full Weight Bearing M3 PT-IP Subjective Start: 02/08/19 08:50 Freq: NEEDED Status: Active Protocol: Document 02/09/19 16:27 HH (Rec: 02/09/19 16:33 [email or web address]) Subjective Physical Therapy Visit Type Type Treatment Note Visit Start Time 15:50 Visit Stop Time 16:15 Total Visit Minutes 25 Number of HOUSE MANAGER Visits 0 Physical Therapy Visit Comments Patient Comments Agreeable to mobilize with PT Therapy Pain Assessment Pain When Pain Assessed During Mobility Pain Present Pain Present Pain Reported M4 PT-IP Mobility and Gait Start: 02/08/19 08:50 Freq: NEEDED Status: Active Protocol: Document 02/09/19 16:27 HH (Rec: 02/09/19 16:33 [email or web address]) PT-Bed Mobility Assessment Rolling Type of Rolling Log Rolling Level of Assist Standby Assistance Supine to Sit Supine to Sit Contact Guard Assistance Sit to Supine Sit to Supine Contact Guard Assistance,1 Person Assistance PT-Transfer Assessment Sit to and From Stand Sit to and from Stand Standby Assistance Equipment Transfer Assistive Device Gait Belt,Front Wheeled Walker Orthotic/Prosthetic Devices or Brace: No Transfers Transfer Destination Chair,Toilet Transfer Ability Level of Assist Standby Assistance Comments Mobility Comments Pt did log roll and supine <> sit x 3 with SBA/CGA. She did supine to sit slowly but safe. Scooting in bed is still the most painful for her. Gait Assessment Gait Gait Assistance Required: Standby Assistance Distance (Feet) 200 Able to Maintain Weight Bearing Status Yes During Gait Assistive Devices Assistive Device Gait Belt,Front Wheeled Walker Orthotic/Prosthetic Devices or Brace: No Gait Deviations General Gait Pattern Decreased Stride Length, Decreased Feet Clearance, Flexed Trunk Factors Limiting Gait Function Factors Limiting Gait Function Decreased Activity Tolerance, Decreased Strength,Pain Comments Gait Comments Pt presents antaglic gait on R side with decreased time spent on stance phase due to chronic knee pain. Cues on decreasing lateral weight shift was given M5 PT-IP Objective Assessments Start: 02/08/19 08:50 Freq: NEEDED Status: Active Protocol: Document 02/08/19 10:45 AW (Rec: 02/08/19 11:01 AW [id number]) Orientation Orientation/Cognition Level of Alertness Alert Orientation Name,Date,Place,Situation Language Function Ability No Deficits Noted Safety Awareness Understands Safety Issues Memory Description No Deficits Noted Comments Pt is pleasant, able to verbalize spinal surgery precautions, and exhibits good attention to safety Gross Range of Motion Upper Extremity ROM Assessment Within Functional Limits Lower Extremity ROM Assessment Within Functional Limits Strength Upper Extremity Strength Assessment Within Functional Limits Lower Extremity Strength Assessment Within Functional Limits Coordination Assessment Gross Coordination Gross Coordination WNL Sensation Assessment Sensation Gross Sensation WNL Muscle Tone Muscle Tone WNL Yes M6 PT-IP Treatment Start: 02/08/19 08:50 Freq: NEEDED Status: Active Protocol: Document 02/09/19 11:45 GGD (Rec: 02/09/19 11:58 GGD [id number]) Physical Therapy Treatment Education Education Provided Precautions M7 PT-IP Assessment and Plan Start: 02/08/19 08:50 Freq: NEEDED Status: Active Protocol: Document 02/09/19 16:27 HH (Rec: 02/09/19 16:33 HH [email or web address]) PT Summary Assessment and Plan Summary Progress Towards Goals Progressing Toward Goals Assessment Summary Pt progressed with amb distance and assistance needed for bed mob. She was able to perform log roll and supine<> sit x 3 with SBA/CGA safely. She will still have to climb up/down 5 stairs with bilateral rails for safe entry to home prior to d/c. Pt also stated she will have a neighbor who is a ex-RN to come everyday to assist as needed Goals Bed Mobility Goal Independent Transfer Goal Independent Gait Goal Independent Gait Distance 400 Other Goals up/down 5 stairs with bilateral rails for safe entry to home. Frequency of Treatment Frequency Of Treatment Twice a Day Treatment Plan Physical Therapy Treatment Plan Bed Mobility Training,Transfer Training,Gait Training, Therapeutic Exercise,Balance Retraining,Post Op Education, Discharge Planning,Hot or Cold Pack,Neuromuscular Re-ed, Coordination Retraining,Manual Therapy Other Recommendations and Next Treatment stairs Focus Recommendations To Nursing Amount of Assist Needed 1 Person Assist Discharge Recommendations PT Discharge Recommendations Home with Assistance
[2019-02-09] MEDS: SENNOSIDES 8.6 MG TABLET 17.2 MG PO (21:13)
[2019-02-10] MEDS: OXYCODONE IR 5 MG TABLET 10 MG PO ×3 (02:15→09:13)
[2019-02-10 05:05] VITALS: BP 132/58; PULSE 68; RESP 16; TEMP 37.1; O2SAT 95
[2019-02-10 08:00] VITALS: BP 135/54; PULSE 73; RESP 18; TEMP 36.6; O2SAT 93
[2019-02-10] MEDS: CHOLECALCIFEROL (VITAMIN D3) 5,000 UNIT TABLET 5000 UNIT PO (09:13)
[2019-02-10] MEDS: LOSARTAN 50 MG TABLET 100 MG PO (09:13)
[2019-02-10] MEDS: DOCUSATE 100 MG CAPSULE PO (09:14)
[2019-02-10] MEDS: hydroCHLOROthiazide 25 MG TABLET PO (09:14)
[2019-02-10] MEDS: SODIUM CHLORIDE 0.9% FLUSH 10 ML IV (09:14)
[2019-02-10] MEDS: PANTOPRAZOLE 20 MG TABLET PO (09:14)
[2019-02-10] MEDS: FENOFIBRATE 160 MG TABLET PO (09:14)
--- NOTE | 2019-02-10 10:00 | OT.IP.TRT ---
Current Diagnoses Spondylolisthesis, lumbosacral region (02/07/19) Spinal stenosis, lumbar region without neurogenic claudication (02/07/19) Postlaminectomy syndrome, not elsewhere classified (02/07/19) Surgery Performed Operation Date: 02/07/19 12:15 Actual Procedures p L4-5,L5-S1 TRANSFORAMINAL LUMBAR INTERBODY FUSION WITH POSTERIOR INSTRUMENTATION - Carol Ann Talley MD Occupational Therapy Treatment Note M2 OT-IP Current Condition Start: 02/09/19 08:34 Freq: Status: Active Protocol: Document 02/09/19 08:34 [facility] (Rec: 02/09/19 09:04 [facility] [email or web address]) Occupational Therapy Current Condition Current Condition Evaluation Date 02/09/19 Treatment Diagnosis L4-5, L5-S1, laminectomy TLIF, decreased mobility and self care Diagnosis Onset Date 02/07/19 Post Operative Precautions Lumbar Precautions Log Roll,No Twisting,Limit Bending,Lifting Restriction of 10 lbs,Gait Belt above Incisional Area Weight Bearing Status Weight Bearing Status Weight Bear as Tolerated M3 OT- IP Subjective and Pain Start: 02/09/19 08:34 Freq: Status: Active Protocol: Document 02/10/19 09:46 [facility] (Rec: 02/10/19 09:59 [facility] [email or web address]) OT- Subjective Occupational Therapy Visit Type Type Treatment Note Visit Start Time 09:00 Visit Stop Time 09:45 Total Visit Minutes 45 Occupational Therapy Visit Comments Patient Comments Pt agreeable to shower after initial encouragement. Patient/Caregiver Goals To go home. OT Pain Assessment Pain When Pain Assessed At Rest Pain Present Pain Present Pain Reported Location Back Intensity 7 Scale Used Numeric (1 - 10) M4 OT- IP ADL's Start: 02/09/19 08:34 Freq: Status: Active Protocol: Document 02/10/19 09:46 [facility] (Rec: 02/10/19 09:59 [facility] [email or web address]) OT ADL-Dressing General Eval Upper Body Dressing Ability Standby Assistance Lower Body Dressing Ability Moderate Assistance Areas Needing Assistance Socks Assistive Devices Dressing Assistive Devices Senior Teller Comments OT Dressing Comments SBA with gown over her head, Assist for socks as pt declined to use sock aid as to assist and normally does not wear socks at home. Pt able to use warehouse administrative assistant with good demonstration to alden brief. OT ADL-Toileting General Evaluation Toileting Ability Standby Assistance Devices Toileting Assistive Devices Grab Bars Comments OT Toileting Comments Pt able to demonstrate good ability to reach behind after education of standing and bending at her hips and to reach back to wipe. Also sugggested may want to wear pads at night to prevent from rushing to the bathroom. OT ADL-Bathing Bathing Type Bathing Type Shower General Evaluation Bathing Ability Minimal Assistance Areas Needing Assistance Wash/Dry Back Devices Bathing Equipment Shower Chair with Arms Comments OT Bathing Comments Pt just needing assist to wash /dry her back and feet. Educated pt able to use long handled sponge, warehouse administrative assistant to assist, otherwise to help. M5 OT- IP IADL's Start: 02/09/19 08:34 Freq: Status: Active Protocol: Document 02/09/19 08:34 [facility] (Rec: 02/09/19 09:04 [facility] [email or web address]) OT-Instrumental Activities of Daily Living Home Safety Awareness Awareness of Need for Assistance at Home Good Awareness Ability to Problem Solve Emergency Able to Problem Solve Situations Home Safety Comments Pt's able to lift and do IADL needs and daughter to be there to assist until Tuesday. Meal Preparation Meal Preparation Caregiver Provides Assist Recruiting Consultant Recruiting Consultant Caregiver Provides Assist M6 OT- IP Functional Cognition Start: 02/09/19 08:34 Freq: Status: Active Protocol: Document 02/10/19 09:46 [facility] (Rec: 02/10/19 09:59 [facility] [email or web address]) Cognitive Factors Limiting Selfcare Function Cognitive Ability Level of Alertness Alert Patient Orientation Name,Age,Birthday,Month,Date, Year,Day of Week,Place, Situation Attention Span Ability Capable of Focused Attention, Capable of Sustained Attention Ability to Follow Commands Able to Follow Multi-Step Commands Memory Description No Deficits Noted Safety Awareness Underestimates Need for Assistance Problem Solving Ability Needs Assist to Identify Solutions Cognitive Comments Cognitive Assessment Comments Able to recall back precautions, still needing practice especially for log rolling for safety. M7 OT- IP Mobility and Balance Start: 02/09/19 08:34 Freq: Status: Active Protocol: Document 02/10/19 09:46 [facility] (Rec: 02/10/19 09:59 [facility] [email or web address]) OT- Bed Mobility Assessment Sit to Supine Sit to Supine Assist Standby Assistance,Bedrails OT-Transfer Assessment Sit to and From Stand Sit to and from Stand Contact Guard Assistance,1 Person Assistance Transfers Transfer Ability Standby Assistance,1 Person Assistance Technique Transfer Destination Bed,Chair,Shower Stall,Toilet Devices Transfer Assistive Devices Gait Belt,Front Wheeled Walker Comments Mobility Comments pt heavily relies on bedrail for bed mobility, suggested pt to either pick one up or able to hold FWW to the side of the bed so she can use it to help roll and get upright. OT- Gait Assessment Gait Gait Assistance Required: Standby Assistance,Contact Guard Assist,1 Person Assist Comments Gait Ability Comments CGA when stepping over thereshold , otherwise SBA with FWW. OT- Balance Assessment Sitting Balance and Reactions Static Sitting Balance Ability Normal Dynamic Sitting Balance Ability Normal Standing Balance and Reactions Static Standing Balance Ability Good Dynamic Standing Balance Ability Fair M8 OT- IP Objective Assessments Start: 02/09/19 08:34 Freq: Status: Active Protocol: Document 02/09/19 08:34 [facility] (Rec: 02/09/19 09:04 [facility] [email or web address]) OT Gross Range of Motion Upper Extremity Range of Motion Assessment Within Functional Limits OT Strength Upper Extremity Strength Assessment Within Functional Limits OT-Muscle Tone Assessment Muscle Tone WNL Yes M9 OT- IP Assessment and Plan Start: 02/09/19 08:34 Freq: Status: Active Protocol: Document 02/10/19 09:46 [facility] (Rec: 02/10/19 09:59 [facility] [email or web address]) OT Summary Assessment and Plan Potential Rehabilitation Potential Good Analytic Complexity at Evaluation Low Summary Progress Towards Goals Progressing Toward Goals Assessment Summary Pt to be going home today, encouraged pt to have her daughter stay overnight to ensure everything is set-up and all needs in place before leaving as pt's has dementia. 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 Pt to discharge home with family. Goals Days to Meet Goals 1 Frequency of Treatment Frequency Of Treatment Once a Day Treatment Plan OT Treatment Plan Patient/Family Education, Discharge Planning Discharge Recommendations OT Discharge Recommendations Home with Assistance Home Equipment Needs Shower chair/BSC, bedrail
--- NOTE | 2019-02-10 10:41 | PM.DS.1 ---
History of Present Illness History of Present Illness Date Patient Seen: 02/10/19 Time Patient Seen: 10:41 Chief complaint: [id number] Narrative: Patient has been having chronic back pain and worsening lumbar radiculopathy. Patient failed multiple conservative management with worsening pain weakness and numbness in her lower extremity. Patient has been having difficulty performing activity of daily living. After discussing risks benefits of treatment options, patient elected proceed with surgery. Discharge Providers Provider Date of admission: 02/07/19 09:59 Discharge Date: 02/10/19 Primary care physician: OMAYRA Abdullahi Consults: 02/07/19 10:28 Consult to Respiratory Therapy Evaluate & Treat Comment: Physician Instructions: Evaluate and treat 02/07/19 19:15 Consult to Occupational Therapy Evaluate & Treat Comment: Physician Instructions: Evaluate and treat Consult to Physical Therapy Evaluate & Treat Comment: Physician Instructions: Evaluate and Treat Discharge provider: Betty Davey PA-C Summary Hospital Course Discharge Diagnosis: s/p lumbar fusion sleep apnea plantar fascitis osteoporosis hypertension hyperlipidemia GERD Chronic kidney disease stage 3 Hospital Course: Elise was admitted for L4-S1 TLIF. On postop day 3 patient was ready for discharge home. Pain was well controlled with oxycodone. She is eating and voiding without difficulty or assistance. She has worked with physical therapy throughout her stay. Cover site dressing applied prior to discharge. She Exam Vital Signs (past 8 hours): - 02/10/19 05:05 02/10/19 08:00 Temperature 98.7 F 97.8 F Pulse Rate 68 73 Respiratory Rate 16 18 Blood Pressure 132/58 L 135/54 L Pulse Oximetry 95 93 Fraction of Inspired Oxygen 21 Oxygen Delivery Method CPAP Oxygen Flow Rate 2 Narrative Exam Narrative: Patient lying in bed in no acute distress. She is alert and oriented x3. She is able to actively dorsiflex plantar flex. Calves are soft, compressible, nontender bilaterally. Sensation intact to light touch throughout bilateral extremities. Complains of right buttock pain. She took a shower this afternoon. Objective Labs Result Diagrams: 02/08/19 05:56 Discharge Plan Discharge Plan Patient Disposition: Home Discharge Med Rec/Prescriptions Prescriptions: New docusate sodium [DOK] 100 mg Capsule 100 mg PO BID Qty: 60 RF: 0 hydroxyzine pamoate 25 mg Capsule 25 mg PO Q6-8H PRN (Reason: muscle spasms) Qty: 60 RF: 1 oxycodone 5 mg tablet 5 mg PO Q4-6H PRN (Reason: pain) Qty: 50 RF: 0 Continued aspirin 81 mg Tablet,Delayed Release (Dr/Ec) 81 mg PO DAILY RF: 0 omeprazole 20 mg Capsule,Delayed Release(Dr/Ec) 20 mg PO DAILY RF: 0 hydrochlorothiazide 25 mg Tablet 25 mg PO DAILY RF: 0 losartan 100 mg Tablet 100 mg PO DAILY RF: 0 fenofibrate 160 mg Tablet 160 mg PO DAILY RF: 0 cholecalciferol (vitamin D3) [Vitamin D3] 5,000 unit Tablet 5,000 unit PO DAILY RF: 0 Discontinued oxycodone 5 mg Tablet 5 - 10 mg PO BID PRN (Reason: Pain) RF: 0 Follow up/Referrals: Carol Ann Talley MD [Physician] - Yisel Yoder ARNP [Primary Care Provider] - Provider Discharge Instructions Activity: No excessive bending, lifting, twisting Cold/Heat Therapy: As needed Skin/Wound/Dressing Care Report to your healthcare provider any signs of infection, such as:: chills, fever and increased pain Dressing: Cover site dressing prior to discharge Visit Report/Discharge Packet Instructions: How to Prevent Falls, DI for Postoperative Pain, DI for Transforaminal Lumbar Interbody Fusion Visit Report Forms: Stroke Signs & Symptoms Discharge Data Primary Care Provider: Yisel Yoder
--- NOTE | 2019-02-10 11:00 | PT.IPTN ---
Current Diagnoses Spondylolisthesis, lumbosacral region (02/07/19) Spinal stenosis, lumbar region without neurogenic claudication (02/07/19) Postlaminectomy syndrome, not elsewhere classified (02/07/19) Surgery Performed Operation Date: 02/07/19 12:15 Actual Procedures p L4-5,L5-S1 TRANSFORAMINAL LUMBAR INTERBODY FUSION WITH POSTERIOR INSTRUMENTATION - Carol Ann Talley MD Physical Therapy Treatment Note M2 PT-IP Current Condition Start: 02/08/19 08:50 Freq: NEEDED Status: Active Protocol: Document 02/08/19 10:45 AW (Rec: 02/08/19 11:01 AW [id number]) Physical Therapy Current Condition Current Condition Evaluation Date 02/08/19 Treatment Diagnosis s/p L4-5, L5-S1 laminectomy, TLIF; impaired transfers and gait Precautions Lumbar Precautions Log Roll,No Twisting,Limit Bending,Lifting Restriction of 10 lbs,Gait Belt above Incisional Area Weight Bearing Status Weight Bearing Status Full Weight Bearing M3 PT-IP Subjective Start: 02/08/19 08:50 Freq: NEEDED Status: Active Protocol: Document 02/10/19 11:00 GGD (Rec: 02/10/19 12:24 GGD [email or web address]) Subjective Physical Therapy Visit Type Type Treatment Note Visit Start Time 10:34 Visit Stop Time 11:01 Total Visit Minutes 27 Number of MANAGER GROUP HOME Visits 1 Physical Therapy Visit Comments Patient Comments Pt would like to try stairs. Therapy Pain Assessment Pain When Pain Assessed At Rest Pain Present Pain Present Pain Reported Location Back Intensity 3 Scale Used Numeric (1 - 10) M4 PT-IP Mobility and Gait Start: 02/08/19 08:50 Freq: NEEDED Status: Active Protocol: Document 02/10/19 11:00 GGD (Rec: 02/10/19 12:24 GGD [email or web address]) PT-Bed Mobility Assessment Rolling Type of Rolling Log Rolling Level of Assist Standby Assistance Supine to Sit Supine to Sit Contact Guard Assistance, Bedrails Sit to Supine Sit to Supine Minimal Assistance,1 Person Assistance,Bedrails Scooting Scooting to Edge of Bed Standby Assistance PT-Transfer Assessment Sit to and From Stand Sit to and from Stand Standby Assistance Equipment Transfer Assistive Device Gait Belt,Front Wheeled Walker Orthotic/Prosthetic Devices or Brace: No Transfers Transfer Destination Bed,Wheelchair Transfer Ability Level of Assist Standby Assistance Gait Assessment Gait Gait Assistance Required: Standby Assistance Distance (Feet) 120 Able to Maintain Weight Bearing Status Yes During Gait Assistive Devices Assistive Device Gait Belt,Front Wheeled Walker Orthotic/Prosthetic Devices or Brace: No Gait Deviations General Gait Pattern Decreased Stride Length, Decreased Feet Clearance, Flexed Trunk Factors Limiting Gait Function Factors Limiting Gait Function Decreased Activity Tolerance, Decreased Strength,Pain Stair Climbing Assessment Evaluation Level of Assist On Stairs Standby Assistance Devices Stair Climbing Assistive Devices Left Railing,Right Railing Technique/Endurance Stair Climbing Direction Ascend and Descend Stair Climbing Technique Step to Step Number of Steps Climbed 3 Stair Climbing Set # Repetitions (reps) 2 M5 PT-IP Objective Assessments Start: 02/08/19 08:50 Freq: NEEDED Status: Active Protocol: Document 02/08/19 10:45 AW (Rec: 02/08/19 11:01 AW [id number]) Orientation Orientation/Cognition Level of Alertness Alert Orientation Name,Date,Place,Situation Language Function Ability No Deficits Noted Safety Awareness Understands Safety Issues Memory Description No Deficits Noted Comments Pt is pleasant, able to verbalize spinal surgery precautions, and exhibits good attention to safety Gross Range of Motion Upper Extremity ROM Assessment Within Functional Limits Lower Extremity ROM Assessment Within Functional Limits Strength Upper Extremity Strength Assessment Within Functional Limits Lower Extremity Strength Assessment Within Functional Limits Coordination Assessment Gross Coordination Gross Coordination WNL Sensation Assessment Sensation Gross Sensation WNL Muscle Tone Muscle Tone WNL Yes M6 PT-IP Treatment Start: 02/08/19 08:50 Freq: NEEDED Status: Active Protocol: Document 02/10/19 11:00 GGD (Rec: 02/10/19 12:24 GGD [email or web address]) Physical Therapy Treatment Education Education Provided Precautions,Safety M7 PT-IP Assessment and Plan Start: 02/08/19 08:50 Freq: NEEDED Status: Active Protocol: Document 02/10/19 11:00 GGD (Rec: 02/10/19 12:24 GGD [email or web address]) PT Summary Assessment and Plan Summary Assessment Summary Pt is improving with mobility. She is inconsistent with bed mobility needing SBA to min A. She is able to sleep in chair at home. Pt safe for home D/C when medically stable. Frequency of Treatment Frequency Of Treatment Twice a Day Treatment Plan Physical Therapy Treatment Plan Bed Mobility Training,Transfer Training,Gait Training, Therapeutic Exercise,Balance Retraining,Post Op Education, Discharge Planning,Hot or Cold Pack,Neuromuscular Re-ed, Coordination Retraining,Manual Therapy Recommendations To Nursing Amount of Assist Needed 1 Person Assist Discharge Recommendations PT Discharge Recommendations Home with Assistance
--- NOTE | 2019-02-10 12:31 | PC.NURSE ---
Discharge pt states pain controlled with medication. Aware to f/u with MD for scheduled apts as well as for any additional questions or concerns. D/c instructions provided to pt, daughter and pt's . pt states she took all belongings with her. Left in w/c with [employer] EX[employer]IN[employer] escort.
--- NOTE | 2019-02-11 12:23 | CM.DPNOTE ---
DC Note/ Late Entry for 02.10.19: Pt DC home w/family as expected. No barriers to safe return home. JW
== END 2019-02-10 11:30 | disposition home or self-care (01) | DRG 454 ==
PROVIDERS: Admitting Provider Orthopaedic Surgery Orthopaedic Surgery of the Spine; PCP Registered Nurse; Visit Provider Orthopaedic Surgery Orthopaedic Surgery of the Spine
PROC: 0SG00AJ Fusion of Lumbar Vertebral Joint with Interbody Fusion Device, Posterior Approach, Anterior Column, Open Approach (ICD-10-PCS; principal; 2019-02-07 12:15)
DX: M48.061 Spinal stenosis, lumbar region without neurogenic claudication (principal); Z68.41 Body mass index [BMI] 40.0-44.9, adult; M96.1 Postlaminectomy syndrome, not elsewhere classified; M43.17 Spondylolisthesis, lumbosacral region; G47.33 Obstructive sleep apnea (adult) (pediatric); E78.5 Hyperlipidemia, unspecified; K21.9 Gastro-esophageal reflux disease without esophagitis; I12.9 Hypertensive chronic kidney disease with stage 1 through stage 4 chronic kidney disease, or unspecified chronic kidney disease; N18.3 Chronic kidney disease, stage 3 (moderate); E66.9 Obesity, unspecified; M48.07 Spinal stenosis, lumbosacral region; M43.16 Spondylolisthesis, lumbar region; M81.0 Age-related osteoporosis without current pathological fracture
CPT/HCPCS: 36415; 72100; 76000; 85014; 85018; 94760; 94762; 97116; 97161; 97165; 97530; 97535; C1776; C9290; J0131; J0330; J0690; J1100; J1170; J2405; J2704; J3010

== ENCOUNTER → 2019-08-10 10:48 | Outpatient (CLI) | payer MEDICARE, SELFPAY ==
[2019-02-07 19:19] VITALS: BMI 40.7
--- NOTE | 2019-08-10 | DI.MRI.S_ITS ---
PROCEDURE: MR KNEE RT WO CON INDICATIONS: Pain in right knee TECHNIQUE: Noncontrast sagittal PD fast spin echo and T2 fast spin echo with fat saturation, sagittal 3-D FLASH with fat saturation; coronal T1 spin echo and PD fast spin echo with fat saturation, and axial PD fast spin echo with fat saturation through the knee. COMPARISON: None. FINDINGS: Image quality: Excellent. Menisci: there is peripheral displacement of medial meniscus bowing medial collateral ligament. Complex tear involving posterior horn of medial meniscus is seen extending to both superior and inferior articulating surfaces. There is no evidence of focal lateral meniscal tear. The meniscal root ligaments appear intact. Cruciate ligaments: The anterior and posterior cruciate ligaments appear intact. Medial structures: Low-grade medial collateral ligament sprain is seen. The posterior oblique ligament, semimembranosus tendon insertions, oblique popliteal ligament, and meniscocapsular junction appear intact. Visualized portions of the pes anserinus tendons appear normal. No abnormal bursal fluid. Lateral structures: Sprain/partial thickness tear involving proximal to mid lateral collateral ligament is seen. The long and short heads of the biceps femoris tendon appear intact. The popliteus tendon appears normal; the popliteofibular ligament appears intact. The posterosuperior and anteroinferior popliteomeniscal fascicles appear intact. The arcuate and fabellofibular ligaments appear intact, on either side of the lateral inferior geniculate artery. Iliotibial band appears normal. Anterior structures: Soft tissue edema and swelling along anterior aspect of patella and patella tendon is seen. The quadriceps and patellar tendons appear intact. Patellar alignment is normal. No femoral trochlear dysplasia or ventral trochlear prominence. No edema in the infrapatellar fat pad. Bones and cartilage: Mild to moderate tricompartmental osteoarthritis and chondromalacia are most prominent in the medial femoral tibial compartment and medial facet of the patellofemoral compartment is seen. There is no erythema involving weight-bearing portion of medial femoral condyle and adjacent medial tibial plateau concerning for small osteochondral lesions in this area versus changes secondary to osteoarthritis. Joint space: There is moderate amount of joint fluid. No Mccurdy's cyst. Normal appearing synovial plicae are incidentally noted. IMPRESSION: 1. Peripheral displacement of medial meniscus bowing medial collateral ligament. Complex tear involving posterior horn of medial meniscus extending to both superior and inferior articulating surfaces. No focal lateral meniscal tear. 2. Cruciate ligaments are intact. Low to moderate grade MCL sprain. Low to moderate grade sprain/partial thickness tear involving proximal to mid lateral collateral ligament. 3. Mild to moderate tricompartmental osteoarthritis and chondromalacia most prominent involving the medial femoral tibial compartment as above. Underlying small osteochondral lesions cannot be excluded. No fracture or dislocation. Moderate amount of joint fluid, no gross loose body. Dictated by: Robbie Pineda M.D. on 08/10/2019 at 12:44 Approved by: Robbie Pineda M.D. on 08/10/2019 at 12:58
== END ==
PROVIDERS: PCP Registered Nurse; Referring Provider Registered Nurse; Visit Provider Registered Nurse
DX: M25.561 Pain in right knee (principal); S83.231A Complex tear of medial meniscus, current injury, right knee, initial encounter; S83.411A Sprain of medial collateral ligament of right knee, initial encounter; S83.421A Sprain of lateral collateral ligament of right knee, initial encounter; M17.11 Unilateral primary osteoarthritis, right knee; M94.261 Chondromalacia, right knee
CPT/HCPCS: 73721

== ENCOUNTER → 2021-01-01 09:17 | Outpatient (CLI) | payer MEDICARE, OTHER, SELFPAY ==
[2019-02-07 19:19] VITALS: BMI 40.7
[2021-01-01 10:02] LABS: Add Manual Diff / Slide Review NO; Basophils Absolute Auto 0 /uL (0-100); Basophils Percent Auto 0.8 % (0-2); Eosinophils Absolute Auto 100 /uL (0-450); Eosinophils Percent Auto 2.4 % (2-4); Lymphocytes Absolute Auto 800 /uL (1100-4500); Mean Corpuscular HGB Conc 34.1 % (30-36); Mean Corpuscular Hemoglobin 32.6 PG (26-34); Mean Corpuscular Volume 95.5 fL (80-100); Monocytes Absolute Auto 200 /uL (0-900); Monocytes Percent Auto 6.4 % (3-14); Neutrophils Absolute Auto 2600 /uL (1500-7000); Neutrophils Percent Auto 68.4 % (50-75); Platelet Count 297 X10^3/uL (150-400); Red Cell Distribution Width 12.5 % (11.6-14.8); White Blood Cell Count 3.8 X10^3/uL (4.5-11.0)
[2021-01-01 10:26] LABS: Hemoglobin A1C% w Est Avg Glu 5.6 % (4.0-6.0)
[2021-01-01 10:31] LABS: BUN Creatinine Ratio 24.4 (6-22); Blood Urea Nitrogen 21 mg/dL (7-17); Carbon Dioxide 29 mmol/L (22-32); Chloride 103 mmol/L (98-107); Estimated Glomerular Filt Rate > 60.0 mL/min (>60); Glucose 105 mg/dL (80-110); HEMOLYSIS < 15 (0-50); Potassium 3.8 mmol/L (3.4-5.1); Sodium 138 mmol/L (137-145)
== END ==
PROVIDERS: PCP Registered Nurse; Referring Provider Orthopaedic Surgery Adult Reconstructive Orthopaedic Surgery; Visit Provider Orthopaedic Surgery Adult Reconstructive Orthopaedic Surgery
DX: Z01.812 Encounter for preprocedural laboratory examination (principal); Z01.818 Encounter for other preprocedural examination; R73.9 Hyperglycemia, unspecified
CPT/HCPCS: 36415; 80048; 83036; 85025; 93005

== ENCOUNTER → 2021-03-16 11:05 | Outpatient (CLI) | payer MEDICARE, OTHER, SELFPAY ==
[2019-02-07 19:19] VITALS: BMI 40.7
[2021-03-16 16:20] LABS: COVID19 -Nasal RAPID Negative (Negative)
== END ==
PROVIDERS: PCP Registered Nurse; Visit Provider Physician Assistant
DX: Z01.812 Encounter for preprocedural laboratory examination (principal); Z20.822 Contact with and (suspected) exposure to COVID-19
CPT/HCPCS: 87635; C9803

== ENCOUNTER 2021-03-17 11:41 | Day surgery (SDC) | payer MEDICARE, OTHER, SELFPAY ==
[2019-02-07 19:19] VITALS: BMI 40.7
[2021-03-09 08:45] VITALS: BMI 39.8
[2021-03-17] VITALS (13 sets, daily range): BP systolic 120–175; BP diastolic 56–74; PULSE 71–96; RESP 14–20; TEMP 36.3–36.9; O2SAT 88–98; BMI 394.9; BMI 40.7
--- NOTE | 2021-03-17 06:00 | DI.RAD.S_ITS ---
PROCEDURE: XR KNEE RT 1TO2V INDICATIONS: right total knee TECHNIQUE: 2 view(s) of the knee acquired. COMPARISON: None. FINDINGS: Bones: Patient is status post knee joint arthroplasty. Hardware components are in expected positions. Visualized bony structures are intact. Soft tissues: Overlying postoperative changes are noted. IMPRESSION: Expected postsurgical change for left knee arthroplasty. Dictated by: Enriqueta Allen MD, PhD on 03/18/2021 at 11:53 Approved by: Enriqueta Allen MD, PhD on 03/18/2021 at 11:55
[2021-03-17] MEDS: VANCOMYCIN 1,000 MG/200 ML PIGGYBACK 200 MG IV (13:30)
[2021-03-17] MEDS: LACTATED RINGERS 1,000 ML 42 ML IV ×2 (13:30→17:35)
[2021-03-17] MEDS: PREGABALIN 75 MG CAPSULE PO (13:31)
[2021-03-17] MEDS: ACETAMINOPHEN 325 MG TABLET 975 MG PO (13:32)
--- NOTE | 2021-03-17 14:31 | PM.PREOP ---
Pre-operative Note COVID-19 COVID-19 status: Negative Interval Note History & Physical reviewed/Exam performed by Physician: Yes Changes to H&P: No
--- NOTE | 2021-03-17 15:23 | PM.OP.1 ---
Operative Date/Time/Diagnoses Date of procedure: 03/17/21 Time of procedure: 15:50 Pre-op diagnosis: Right knee osteoarthritis Post-op diagnosis: same Procedure & Clinicians Procedure: Right total knee arthroplasty Same procedure as scheduled: Yes Indications: The patient has had progressively worsening right knee pain with radiographic changes consistent with arthritis. Non-operative management has failed and the patient has requested total knee replacement. The risks, benefits and alternatives to surgery were discussed with the patient prior to proceeding. Risks discussed included, but were not limited to, failure to relieve pain, stiffness, infection, nerve damage, deep venous thrombosis, pulmonary embolism, stroke, coma, heart attack, permanent paralysis and , as well as the potential need for eventual revision of the prosthetic. Surgeon: Gege Pinon Underwater Trapper: Gilberto Nj Anesthesia Type: General and Spinal Operative Notes Findings: Severe right knee osteoarthritis, good stability, adequate bone Closure Type: primary Specimen(s): none sent Prosthetic devices, grafts, tissues, transplants, or devices: [employer] [facility] BCS 2 size 6 femur, size 4 tibia, +10 poly, 32 by 7.5 mm round patella Applied: drain(s) Estimated Blood Loss (mL): 250 Blood products transfused: none Procedure in detail: The patient was seen in the pre-operative area, where the patient identified the right knee as the operative site and this was marked with my initials. The patient received pre-operative antibiotics, and was taken to the operating room and placed on the operative table in the supine position. After satisfactory anesthesia, a multimedia educational specialist out was performed. The right leg was encircled with a tourniquet about the proximal thigh, and the leg was prepared from the toes to the tourniquet with ChloroPrep in the usual fashion and draped through sterile drapes. The leg was elevated and exsanguinated with Eschmark bandage and the tourniquet inflated to [250] mmHg pressure. The knee was approached through an approximately 18 cm incision centered over the patella and carried into the knee through a medial parapatellar arthrotomy. A portion of the medial and lateral meniscus was resected. Soft tissue was carefully mobilized around the patella the patella was measured with a caliper. Bone was resected from the patella and the patellar height was reconstituted with up an appropriate sized patellar component. A cover was then placed on the patella. A small amount of additional medial and lateral meniscus was resected. The distal femur was cut at 5?. A [+2] cut was used. It looked like an appropriate distal femoral cut and the cut was made without difficulty. An extramedullary guide was used for the tibial cut. 10 mm was resected off the least affected side.The tibia was prepared. The rotation was assessed. The patient was placed in extension residual medial and lateral meniscus as well as any residual bone was carefully resected. [4mm] additional tibia was resected. Hemostasis was achieved especially posteriorly. Additional local was injected into the posterior capsule. The extension gap was assessed and additional releases for gap balancing were performed as necessary. It was checked with the gap standards engineer. The femoral component was trial was placed and the notch was finished. The rotation was assessed and the appropriate size femoral guide was placed on the distal femur and finishing cuts were made. There was no evidence of notching. She had a somewhat atypical femur in that her AP diameter was between 6 and 7 and her medial to lateral diameter was about a 5. The anterior, posterior and chamfer cuts were then made. The posterior osteophytes and soft tissues were then removed. The posterior capsule was injected with part of a mixture of 60 ml 0.25% Marcaine mixed with 20 ml Exparel for post operative pain control. The remainder of this mixture was injected into the capsule and subcutaneous tissues during cement curing. The tibial and femoral components were then placed and the knee placed through a range of motion. Range of motion was [0-130], with good stability throughout the range. There was some mild fraying of the popliteus. There was good tracking of the components. The trials were then removed, and the tibia was finished. The bone was prepared with pulsatile lavage, and dried with a sponge. Cement was applied and the final prosthetics placed. Excess cement was removed during and after cement curing. A brief Betadine soak was performed. After confirming there was no extruded cement posteriorly, the final tibial insert was placed. The knee was copiously irrigated and the tourniquet deflated. Hemostasis was obtained with the Bovie cautery. A drain was placed and brought out superolaterally. The capsule was closed with interrupted nonabsorbable suture. The subcutaneous layer was closed with barbed sutures, and the skin with a running 3-0 V-Lock suture and Surgical glue. An Aquacel Ag dressing was applied and the patient was taken to recovery having tolerated the procedure well. Complications: none Post-operative Condition: stable Disposition: Acute Care Plan for aftercare: The patient will be maintained on a standard total knee replacement protocol with weight bearing as tolerated. The patient will receive aspirin and sequential compression devices for DVT prophylaxis. The patient will be discharged home when safe for the home environment.
[2021-03-17] MEDS: CEFAZOLIN 1 GM VIAL 2 GM IV (15:35)
--- NOTE | 2021-03-17 15:48 | SUR.OPER ---
Supine on padded OR bed. Pillow under head, arms secured on padded armboards <90 degree abduction. Safety belt across torso. Non-operative leg secured with tape over blanket over lower leg. Operative leg secured in DeMayo/Naveed/Nathe positioner. Foam padded brace at thigh of operative leg.
[2021-03-17] MEDS: TRANEXAMIC ACID 1,000 MG VIAL 2000 MG INJ ×2 (15:55→17:14)
[2021-03-17] MEDS: BUPIVACAINE 0.25% (PF) 30 ML, EPINEPHrine 0.15 MG INJ (15:57)
[2021-03-17] MEDS: BUPIVACAINE LIPOSOME 266 MG/20 ML VIAL INJ (15:59)
--- NOTE | 2021-03-17 15:59 | SUR.OPER ---
Dentures sent with patient to PACU.
--- NOTE | 2021-03-17 16:02 | SUR.OPER ---
Glasses sent with patient to PACU
[2021-03-17] MEDS: OXYCODONE IR 5 MG TABLET PO ×2 (18:10→18:46)
--- NOTE | 2021-03-17 19:05 | SUR.PHASEI ---
1845 Held in Recovery due to acute care being too busy to take report. Into recovery room at 1740, transferred finally at 1850. Awake and doing well. Report given to Michael.
[2021-03-17] MEDS: LACTATED RINGERS 1,000 ML 100 ML IV (19:22)
[2021-03-17] MEDS: ACETAMINOPHEN 325 MG TABLET 650 MG PO (20:40)
[2021-03-17] MEDS: DOCUSATE 100 MG CAPSULE PO (20:40)
[2021-03-17] MEDS: ASPIRIN EC 81 MG TABLET PO (20:40)
[2021-03-18] VITALS: BP 148/75; PULSE 74; RESP 16; TEMP 36.3; O2SAT 94
[2021-03-18] MEDS: CEFAZOLIN 1 GM VIAL 2 GM IV ×2 (00:13→08:57)
[2021-03-18] MEDS: PANTOPRAZOLE DR 20 MG TABLET PO (05:49)
[2021-03-18] MEDS: OXYCODONE IR 10 MG TABLET PO ×2 (06:25→10:14)
[2021-03-18 06:27] VITALS: BP 150/66; PULSE 74; RESP 16; TEMP 36.2; O2SAT 97
[2021-03-18 06:57] LABS: Hematocrit 34.7 % (36-46); Hemoglobin 11.8 g/dL (12.0-16.0)
--- NOTE | 2021-03-18 08:30 | PC.NURSE ---
Patient denies pain, given po pain meds around 0630. She is alert and orientedx3, cms wnl and ppx2 to r. leg. Patient has an aquacel dressing and aquacel in place to r.knee. Eating and comfortable at this time
[2021-03-18 09:00] VITALS: BP 141/80; PULSE 69; RESP 16; TEMP 35.6; O2SAT 97
[2021-03-18] MEDS: ACETAMINOPHEN 325 MG TABLET 650 MG PO (09:00)
[2021-03-18] MEDS: hydroCHLOROthiazide 25 MG TABLET PO (09:01)
[2021-03-18] MEDS: AMLODIPINE 5 MG TABLET 10 MG PO (09:01)
[2021-03-18] MEDS: ASPIRIN EC 81 MG TABLET PO (09:01)
[2021-03-18] MEDS: FENOFIBRATE, MICRONIZED 67 MG CAPSULE 134 MG PO (09:01)
[2021-03-18] MEDS: LOSARTAN 50 MG TABLET 100 MG PO (09:01)
[2021-03-18] MEDS: CHOLECALCIFEROL (VITAMIN D3) 5,000 UNIT TABLET 5000 UNIT PO (09:01)
[2021-03-18] MEDS: DOCUSATE 100 MG CAPSULE PO (09:01)
[2021-03-18] MEDS: INFLUENZA HD VACCINE 0.7 ML SYRINGE IM (09:06)
--- NOTE | 2021-03-18 09:36 | PM.DS.1 ---
History of Present Illness History of Present Illness Date Patient Seen: 03/18/21 Time Patient Seen: 09:36 Chief complaint: Knee pain Narrative: Pain is been moderate to severe. Denies fever or chills. No nausea or vomiting. Patient has her daughter at home to assist her. Discharge Providers Provider Discharge Date: 03/18/21 Primary care physician: OMAYRA Abdullahi Consults: 03/17/21 06:00 Consult to Anesthesiology Routine Comment: Consulting Provider: Anesthesiologist Reason for consultation: Regional block for post operative pain control 03/17/21 18:55 Consult to Discharge Planning Routine Comment: Consult to Physical Therapy Evaluate & Treat Comment: Physician Instructions: postop TKA protocol Consult to Respiratory Therapy Evaluate & Treat Comment: Physician Instructions: Evaluate and treat Discharge provider: Gilberto Nj PA-C Summary Hospital Course Discharge Diagnosis: Right knee osteoarthritis Hospital Course: Right total knee arthroplasty Same procedure as scheduled: Yes Indications: The patient has had progressively worsening right knee pain with radiographic changes consistent with arthritis. Non-operative management has failed and the patient has requested total knee replacement. The risks, benefits and alternatives to surgery were discussed with the patient prior to proceeding. Risks discussed included, but were not limited to, failure to relieve pain, stiffness, infection, nerve damage, deep venous thrombosis, pulmonary embolism, stroke, coma, heart attack, permanent paralysis and , as well as the potential need for eventual revision of the prosthetic. Surgeon: Gege Pinon Disaster Or Damage Control Specialist: Gilberto Nj Anesthesia Type: General and Spinal Operative Notes Findings: Severe right knee osteoarthritis, good stability, adequate bone Closure Type: primary Specimen(s): none sent Prosthetic devices, grafts, tissues, transplants, or devices: [employer] BCS 2 size 6 femur, size 4 tibia, +10 poly, 32 by 7.5 mm round patella Applied: drain(s) Estimated Blood Loss (mL): 250 Blood products transfused: none Patient admitted to the hospital for right total knee arthroplasty. Patient consented to the same. Patient taken operating room yesterday underwent right total knee arthroplasty. Patient back in his room recovering well as in stable condition. She will be discharged home today in stable condition. Exam Vital Signs (past 8 hours): - 03/18/21 06:27 03/18/21 09:00 Temperature 97.2 F L 96.1 F L Pulse Rate 74 69 Respiratory Rate 16 16 Blood Pressure 150/66 H 141/80 H Pulse Oximetry 97 97 Oxygen Delivery Method Room Air Oxygen Flow Rate 0 Narrative Exam Narrative: 76-year-old female resting comfortably in bed in no apparent distress. Dressing is Clean, dry, intact.. Motor functions intact bilateral lower extremities. Sensation is grossly intact to light touch bilateral lower extremities. Const General: cooperative and comfortable Objective Labs Result Diagrams: 03/18/21 05:44 Labs: Laboratory Results - last 24 hr 03/18/21 05:44 Hgb 11.8 L Hct 34.7 L PFSH Medical History Back pain with history of spinal surgery CKD (chronic kidney disease), stage III Cyst (04/29/15) Diaphragmatic hernia Dilatation of aorta Diverticulosis Elevated liver enzymes Former smoker GERD without esophagitis Hearing loss HLD (hyperlipidemia) HTN (hypertension) Neurogenic claudication KASI on CPAP Osteopenia Plantar fascial fibromatosis Spinal stenosis Surgical History H/O: hysterectomy History of lumbar fusion (02/07/19) Hx of appendectomy Hx of exploratory laparotomy Hx of foot surgery Hx of thumb surgery Social History household members: spouse Smoking Status: Former smoker alcohol intake: current Discharge Assessment & Plan Assessment and Plan Assessment: Patient progressing as expected status post right total knee arthroplasty Plan of Treatment: Discharge home today in stable condition Discharge Plan Discharge Plan Patient Disposition: Home Discharge orders & Medications Discharge Orders: Discharge (Order); Ordered 03/18/21 Ordered By: Gilberto Nj Prescriptions: New acetaminophen 325 mg Tablet 650 mg PO TID Qty: 60 RF: 0 aspirin 81 mg Tablet,Delayed Release (Dr/Ec) 81 mg PO BID Qty: 60 RF: 0 docusate sodium 100 mg Capsule 100 mg PO BID Qty: 20 RF: 0 oxycodone 10 mg Tablet 10 mg PO Q3HR PRN (Reason: Pain, Severe (7-10)) Qty: 60 RF: 0 Continued omeprazole 20 mg Capsule,Delayed Release(Dr/Ec) 20 mg PO DAILY RF: 0 hydrochlorothiazide 25 mg Tablet 25 mg PO DAILY RF: 0 losartan 100 mg Tablet 100 mg PO DAILY RF: 0 fenofibrate 160 mg Tablet 160 mg PO DAILY RF: 0 cholecalciferol (vitamin D3) [Vitamin D3] 5,000 unit Tablet 5,000 unit PO DAILY RF: 0 olanzapine 2.5 mg Tablet 2.5 mg PO DAILY PRN (Reason: Anxiety) RF: 0 amlodipine 10 mg Tablet 10 mg PO DAILY RF: 0 Discontinued aspirin 81 mg Tablet,Delayed Release (Dr/Ec) 81 mg PO DAILY RF: 0 oxycodone 5 mg tablet 5 mg PO Q4-6H PRN (Reason: pain) Qty: 50 RF: 0 Follow up/Referrals: Yisel Yoder ARNP [Primary Care Provider] - Gege Pinon MD [Physician] - (2 weeks) Diet/Activity/Treatments Diet: Diet as Tolerated Activity: Weight-bearing as tolerated Cold/Heat Therapy: Apply ice to knee as needed Skin/Wound/Dressing Care Report to your healthcare provider any signs of infection, such as:: chills, fever, increased pain, unusual drainage and unusual redness Dressing: May remove Juan M wrap in 24-48 hours, leave dressing in place, keep clean and dry Visit Report/Discharge Packet Instructions: DI for Knee Replacement Stand Alone Forms: Surgery Discharge Discharge Data Primary Care Provider: Yisel Yoder Attending Provider: Gege Pinon
--- NOTE | 2021-03-18 10:15 | PT.IIE ---
Current Diagnoses Unilateral primary osteoarthritis, right knee (03/17/21) Surgery Performed Operation Date: 03/17/21 13:45 Actual Procedures p Total Knee Arthroplasty(Right) - Gege Pinon MD Medical History (Last Reviewed 03/18/21 @ 09:39 by Gilberto Nj PA-C) Back pain with history of spinal surgery CKD (chronic kidney disease), stage III Cyst (04/29/15) Diaphragmatic hernia Dilatation of aorta Diverticulosis Elevated liver enzymes Former smoker GERD without esophagitis Hearing loss HLD (hyperlipidemia) HTN (hypertension) Neurogenic claudication KASI on CPAP Osteopenia Plantar fascial fibromatosis Spinal stenosis Physical Therapy Inpatient Evaluation/Re-Eval M1 PT/OT-IP Prior Functional Status Start: 03/18/21 12:40 Freq: NEEDED Status: Active Protocol: Document 03/18/21 10:15 AB (Rec: 03/18/21 12:52 AB [id number]) Medical Review Prior Functional Status Medical History Reviewed Yes Communication able to make needs known Mobility and Gait pt stated that she is independent with all mobilities and ambulation without AD Social History Household Members spouse Living Arrangements Mobile home Number of Floors (Floors) One Floor Number of Stairs To Enter/Railing? 4 steps to [place] with wide B rails and can only hold on to one rail at a time Home Environment High Toilet,Walk in Shower Home Equipment Front Wheel Walker,Straight Cane,Shower Seat with Backrest ,Shower Seat without Backrest, Grab Bars In Shower Additional Social History Comment pt's spouse has dementia and will not be able to assist pt. Pt's daughter will stay with pt to assist for ~ 9 days, pt 's neighbor will be able to assist afterwards M2 PT-IP Current Condition Start: 03/18/21 12:40 Freq: NEEDED Status: Active Protocol: Document 03/18/21 10:15 AB (Rec: 03/18/21 12:52 AB [id number]) Physical Therapy Current Condition Current Condition Evaluation Date 03/18/21 Treatment Diagnosis s/p R TKA; difficulty in walking Onset Date 03/17/21 M3 PT-IP Subjective Start: 03/18/21 12:40 Freq: NEEDED Status: Active Protocol: Document 03/18/21 10:15 AB (Rec: 03/18/21 12:52 AB [email or web address]) Subjective Physical Therapy Visit Type Type Initial Evaluation Visit Start Time 10:15 Visit Stop Time 10:55 Total Visit Minutes 40 Number of PRACTICE REPRESENTATIVE Visits 0 Physical Therapy Visit Comments Patient Comments agreeable to do PT Therapy Pain Assessment Pain When Pain Assessed At Rest Pain Present Pain Present Pain Reported Location Back Intensity 5 Scale Used Numeric (0 - 10) Pain Management Techniques Modification of Treatment,Re- positioning,Timing of Activity with Medications M4 PT-IP Mobility and Gait Start: 03/18/21 12:40 Freq: NEEDED Status: Active Protocol: Document 03/18/21 10:15 AB (Rec: 03/18/21 12:52 AB [email or web address]) PT-Bed Mobility Assessment Supine to Sit Supine to Sit Standby Assistance Sit to Supine Sit to Supine Standby Assistance PT-Transfer Assessment Sit to and From Stand Sit to and from Stand Standby Assistance,Contact Guard Assistance Equipment Transfer Assistive Device Front Wheeled Walker Orthotic/Prosthetic Devices or Brace: No Transfers Transfer Destination Bed Transfer Technique ambulated Transfer Ability Level of Assist Standby Assistance,Contact Guard Assistance,1 Person Assistance,Use of Upper Extremities Comments Mobility Comments pt sitting on chair and agreed to do PT. completed sit to stand from chair SBA to CGA and ambulated to the bed ~ 12 ft using FWW SBA to CGA and cues for safety. pt completed sit<>supine SBA. Caregiver training conducted. educated pt's daughter on how to use safety belt and how to assist pt. daughter was able to put safety belt on pt and assisted pt with sit to stand. pt ambulated in the hallway using FWW ~ 125 ft CGA with daughter providing assistance. stair climbing training. educated pt on how to do stairs and daughter educated on positioning and how to assist pt. pt completed up/ down steps holding on to R rail with B hands and managed stairs sideways with daughter assisting pt and completed. pt assisted back to the room. pt ambulated from w/c to chair using fWW SBA. pt and daughter without any concerns. Left pt with NAC to assist with getting pt ready for d/c. Gait Assessment Gait Gait Assistance Required: Standby Assistance,Contact Guard Assist Distance (Feet) 125 Able to Maintain Weight Bearing Status Yes During Gait Assistive Devices Assistive Device Gait Belt,Front Wheeled Walker Orthotic/Prosthetic Devices or Brace: No Gait Deviations General Gait Pattern Antalgic,Decreased Stride Length,Decreased Feet Clearance Factors Limiting Gait Function Factors Limiting Gait Function Decreased Activity Tolerance, Decreased Strength,Limited Range of Motion,Pain,Poor Balance,Poor Safety Awareness Stair Climbing Assessment Evaluation Level of Assist On Stairs Contact Guard Assistance Devices Stair Climbing Assistive Devices Right Railing Technique/Endurance Stair Climbing Technique Step to Step Number of Steps Climbed 3 Query Text: Stair Climbing Set # Repetitions (reps) 1 PT-Balance Assessment Sitting Balance and Reactions Static Sitting Balance Ability Good Dynamic Sitting Balance Ability Good Standing Balance and Reactions Static Standing Balance Ability Fair Dynamic Standing Balance Ability Fair Device Used FWW M5 PT-IP Objective Assessments Start: 03/18/21 12:40 Freq: NEEDED Status: Active Protocol: Document 03/18/21 10:15 AB (Rec: 03/18/21 12:52 AB [email or web address]) Orientation Orientation/Cognition Level of Alertness Alert Orientation Name,Place,Situation Safety Awareness Decreased Safety Awareness Memory Description No Deficits Noted Strength Lower Extremity Strength Assessment Right Impaired Hip 4-/5 Knee 3+/5 Coordination Assessment Gross Coordination Gross Coordination WNL Sensation Assessment Sensation Gross Sensation WNL Muscle Tone Muscle Tone WNL Yes M6 PT-IP Treatment Start: 03/18/21 12:40 Freq: NEEDED Status: Active Protocol: Document 03/18/21 10:15 AB (Rec: 03/18/21 12:52 AB [email or web address]) Physical Therapy Treatment Education Education Provided Precautions,Weight Bearing Status,Post-Op Packet,Safety M7 PT-IP Assessment and Plan Start: 03/18/21 12:40 Freq: NEEDED Status: Active Protocol: Document 03/18/21 10:15 AB (Rec: 03/18/21 12:52 AB [email or web address]) PT Summary Assessment and Plan Potential Rehabilitation Potential Good Status of Condition at Evaluation Stable Summary Impairments Pain,ROM,Strength,Balance, Coordination,Sensation,Tone, Cognition,Bed Mobility, Transfers,Gait,Activity Tolerance Assessment Summary pt requiring SBA to CGA with mobility. caregiver training conducted with pt and pt's daughter. daughter plans to stay with pt for a few days to assist. pt is set up for outpt PT. pt may go home when medically stable. Goals Bed Mobility Goal Independent Transfer Goal Independent,Front Wheeled Walker Gait Goal Independent,Front Wheel Walker Gait Distance 200 Other Goals up/down 4 steps 1 rail mod I Days to Meet Goals 3 Frequency of Treatment Frequency Of Treatment Twice a Day Treatment Plan Physical Therapy Treatment Plan Bed Mobility Training,Transfer Training,Gait Training, Therapeutic Exercise,Balance Retraining,Post Op Education, Discharge Planning,Hot or Cold Pack,Neuromuscular Re-ed, Coordination Retraining,Manual Therapy Weight Bearing Status Weight Bearing Status Weight Bear as Tolerated Allowed Weight Bearing Amount (enter % RLE WBAT or #) (%) Recommendations To Nursing Amount of Assist Needed 1 Person Assist Discharge Recommendations PT Discharge Recommendations Home with Assistance, Outpatient PT Transportation Needs at Discharge Private Vehicle
== END 2021-03-18 11:15 | disposition home or self-care (01) ==
LOC: OR 11:43 → AC 11:45
PROVIDERS: PCP Registered Nurse; Referring Provider Orthopaedic Surgery; Visit Provider Orthopaedic Surgery
PROC: 0SRC0JZ Replacement of Right Knee Joint with Synthetic Substitute, Open Approach (ICD-10-PCS; CPT 27447; principal; 2021-03-17 13:45)
DX: M17.11 Unilateral primary osteoarthritis, right knee (principal); I12.9 Hypertensive chronic kidney disease with stage 1 through stage 4 chronic kidney disease, or unspecified chronic kidney disease; N18.30 Chronic kidney disease, stage 3 unspecified; K21.9 Gastro-esophageal reflux disease without esophagitis; E78.5 Hyperlipidemia, unspecified; G47.33 Obstructive sleep apnea (adult) (pediatric); Z23 Encounter for immunization
CPT/HCPCS: 27447; 36415; 73560; 85014; 85018; 90471; 90662; 97161; 97530; C1776; C9290; J0171; J0690; J1100; J2250; J2405; J2704; J3010

== ENCOUNTER → 2023-06-28 14:25 | Outpatient (CLI) | payer MEDICARE, OTHER, SELFPAY ==
[2023-05-09 10:01] VITALS: BMI 40.7
--- NOTE | 2023-06-29 02:45 | DI.NM.S_ITS ---
DATE OF SERVICE: 06/28/2023 PROCEDURE: Exercise stress test INDICATIONS: Coronary atherosclerosis, shortness of breath, hypertension, hyperlipidemia. CARDIAC STRESS: Patient underwent exercise stress test under the supervision of an attending staff. She walked on Rickey protocol for 2 minutes and 8 seconds, achieved 88% of target heart rate and hypertensive blood pressure response. Resting blood pressure 148/80 and peak blood pressure 200/84 mmHg. BOBBY 43%. Achieved 4.6 METS of workload. Baseline rhythm sinus with diffuse low-voltage complexes and poor R-wave progression. During stress, no convincing ischemic changes seen. No significant arrhythmias. No chest discomfort, however, patient had significant shortness of breath. Oxygen saturation was 93% at peak exercise. CONCLUSION: Exercise stress test negative for inducible ischemia, however, patient has significantly diminished exercise tolerance. Just to walk on Rickey protocol for 2 minutes and 8 seconds. BOBBY positive 3%. Mildly hypertensive blood pressure response with peak blood pressure 200/84. No ischemic changes or no significant arrhythmias. No chest pain, however, had significant shortness of breath. Correlate clinically. Elise Owen - MEHRDAD/rashad/birgit doc#: [id number]/job#: [id number] dd: 06/28/2023 16:45:00 dt: 06/29/2023 02:30:00 DICTATING MD/COPIES TO: Rhiannon Manzano MD; Maverick Amaro MD COPIES MNE: REJI;
== END ==
PROVIDERS: PCP Registered Nurse; Referring Provider Internal Medicine Cardiovascular Disease; Visit Provider Internal Medicine Cardiovascular Disease
DX: R06.09 Other forms of dyspnea (principal); I25.10 Atherosclerotic heart disease of native coronary artery without angina pectoris; R06.02 Shortness of breath; I10 Essential (primary) hypertension; E78.5 Hyperlipidemia, unspecified
CPT/HCPCS: 93017

== ENCOUNTER → 2023-07-11 09:54 | Outpatient (CLI) | payer MEDICARE, OTHER, SELFPAY ==
[2023-05-09 10:01] VITALS: BMI 40.7
--- NOTE | 2023-07-11 | DI.ECHO.S_ITS ---
[facility] +---------+ : : [address] : [place] : : : : [id number] : : : : Phone: [phone] +---------+ Echocardiogram Report + + :Name: SHELBY ROCKWELL Study Date: 07/11/2023 Height: 63 in : :[facility] ReadingLocation: Weight: 240 lb : : Gender: Female BSA: 2.1 m2 : :: 1945 Age: 78 yrs BP: 143/84 mmHg: :Reason For Study: DYSPNEA ON EXERTION : :Ordering Physician: SMITA, : :NISHA Performed By: Bijan Solares : :Referring: NISHA AMARO : + + Interpretation Summary 1) Normal left ventricular thickness, size, wall motion, and systolic function (EF 60-65%). 2) Mildly enlarged right ventricle with low normal function. 3) No significant valvular abnormalities. 4) No prior Echo available for comparison. Procedure: A two-dimensional transthoracic echocardiogram with color flow and Doppler was performed. The study quality was technically adequate. There is no prior echocardiogram noted for this patient. The patient was in normal sinus rhythm during the exam. The heart rate ranged between 62-73 bpm during the study. Left Ventricle: The left ventricle is normal in size and wall thickness. The ejection fraction is estimated to be 60-65%. Left ventricular systolic function appears normal without focal wall motion abnormalities. Right Ventricle: The right ventricle is mildly dilated. Right ventricular systolic function is at the lower limits of normal. Atria: The left atrial size is normal. The right atrium is borderline dilated. Mitral Valve: The mitral valve is normal in structure and function. There is no mitral valve stenosis. There is trace mitral regurgitation. Aortic Valve: The aortic valve is trileaflet. There is no aortic valve stenosis. No aortic regurgitation is present. Tricuspid Valve: The tricuspid valve is normal in structure and function. There is no tricuspid stenosis. No tricuspid regurgitation. Pulmonary artery pressures cannot be estimated because of the lack of a measurable TR jet velocity. Pulmonic Valve: The pulmonic valve is normal in structure and function. There is no pulmonic valvular stenosis. There is no pulmonic valvular regurgitation. Great Vessels: The aortic root is normal size. The dimensions of the ascending aorta are normal. The IVC is of normal diameter and collapses greater than 50% with a sniff. This suggests a low right atrial pressure of 3 mm Hg. Pericardium/ Pleura There is no pericardial effusion. There is no pleural effusion. MMode/2D Measurements & Calculations LVIDd: 4.5 cm LVOT diam: 2.1 cm LVIDs: 3.4 cm Ao root diam: 2.9 cm FS: 25.1 % asc Aorta Diam: 2.9 cm IVSd: 1.1 cm Ao Arch Diam (Prox Trans): 2.7 cm LVPWd: 1.2 cm LV person. diameter/BSA (cm/m^2): 2.2 LV sys. diameter/BSA (cm/m^2): 1.6 LA A2 area: 15.6 cm2 RA long axis: 4.1 cm LA A4 area: 15.6 cm2 RA area: 18.6 cm2 LA length (vol): 5.0 cm RA vol: 70.5 ml LA vol: 41.4 ml RA : 33.7 ml/m2 LA vol index: 19.8 ml/m2 IVC diam: 2.0 cm RVD1 (basal): 4.2 cm RVD2 (mid): 3.9 cm TAPSE: 1.8 cm Doppler Measurements & Calculations Ao V2 max: 155.0 cm/sec LVOT Max Matthew: 118.7 cm/sec Ao V2 mean: 115.7 cm/sec LV V1 max P.6 mmHg Ao max P.6 mmHg LV V1 VTI: 29.1 cm Ao mean P.8 mmHg JAIRON(I,D): 2.7 cm2 Ao V2 VTI: 37.4 cm JAIRON(V,D): 2.7 cm2 sev ratio: 0.78 JAIRON indexed to BSA (cm^2/m^2): 1.3 MV E max matthew: 59.3 cm/sec PA V2 max: 137.9 cm/sec MV A max matthew: 81.2 cm/sec PA V2 mean: 89.4 cm/sec MV E/A: 0.73 PA mean P.8 mmHg Med Peak E' Matthew: 5.9 cm/sec PA pr(Accel): 39.6 mmHg E/E' med: 10.1 Lat Peak E' Matthew: 6.8 cm/sec E/E' lat: 8.7 E/e' average: 9.4 MV dec time: 0.26 sec SV(LVOT): 101.7 ml Reading Physician:11:41 AM
== END ==
PROVIDERS: PCP Registered Nurse; Referring Provider Internal Medicine Cardiovascular Disease; Visit Provider Internal Medicine Cardiovascular Disease
DX: R06.09 Other forms of dyspnea (principal); I10 Essential (primary) hypertension
CPT/HCPCS: 93306

== ENCOUNTER → 2024-11-20 11:34 | Outpatient (CLI) | payer MEDICARE, OTHER, SELFPAY ==
[2023-05-09 10:01] VITALS: BMI 40.7
--- NOTE | 2024-11-20 11:38 | DI.MRI.S_ITS ---
PROCEDURE: MR LUMBAR SPINE WO CON INDICATIONS: HX OF LUMBAR FUSION TECHNIQUE: Noncontrast sagittal T1 spin echo and T2 fast echo, sagittal STIR, and T2 fast spin echo through the lumbar spine. In cases with scoliosis, additional coronal T2 fast spin echo may be performed. COMPARISON: [facility], MR, MR LUMBAR SPINE WO CON, 09/01/2018, 6:47. FINDINGS: Image quality: Excellent. Alignment and Curvature: There is grade 1 L4 anterolisthesis as well as minimal L1-2 listhesis. Bone Marrow: There is partial laminectomy with posterior spinal fixation with transpedicular screws bilaterally at L4-S1. No suspicious areas of bone marrow signal abnormality seen. Spinal Cord: Conus medullaris terminates at the L1 level. Visualized cord demonstrates normal signal and size. Paraspinous Soft Tissues: No paravertebral masses. T12-L1: Normal appearance. L1-L2: There is mild disc bulge and facet arthropathy, without spinal stenosis. L2-L3: There is disc bulge and bilateral facet arthropathy. There is mild left foraminal narrowing. L3-L4: There is disc bulge and residual facet arthropathy, with mild left foraminal narrowing. L4-L5: No definite spinal stenosis seen L5-S1: No definite spinal stenosis seen. IMPRESSION: 1. Unremarkable appearance of postoperative changes in the L4-S1 region. 2. Mild degenerative changes more superiorly, without central spinal stenosis or disc extrusion seen. Dictated by: Gage Vásquez M.D. on 11/20/2024 at 20:34 Approved by: Gage Vásquez M.D. on 11/20/2024 at 20:42
== END ==
LOC: MRI 11:37
PROVIDERS: Referring Provider Physician Assistant Surgical; Visit Provider Physician Assistant Surgical
DX: M47.26 Other spondylosis with radiculopathy, lumbar region (principal); Z98.1 Arthrodesis status; Z86.59 Personal history of other mental and behavioral disorders
CPT/HCPCS: 72148

== ENCOUNTER → 2025-03-13 12:06 | Outpatient (CLI) | payer MEDICARE, OTHER, SELFPAY ==
[2023-05-09 10:01] VITALS: BMI 40.7
--- NOTE | 2025-03-13 12:10 | DI.RAD.S_ITS ---
PROCEDURE: XR HIP W PEL IF DONE LT 2V INDICATIONS: left hip pain TECHNIQUE: AP pelvis with lateral view(s) of the left hip COMPARISON: None. FINDINGS: Bones: Long cephalomedullary reji transfixes a mid femoral fracture is solidly unified in anatomic alignment . Moderate callus is seen in the cortical region at the fracture site. SI and hip joints: Mild degeneration both hip and SI joints appreciated. Soft tissues: No soft tissue swelling, calcification or mass. IMPRESSION: Chronic findings Dictated by: Rafi Rachel M.D. on 03/14/2025 at 13:08 Approved by: Rafi Rachel M.D. on 03/14/2025 at 13:09
== END ==
PROVIDERS: Visit Provider Physical Medicine & Rehabilitation
DX: M25.552 Pain in left hip (principal); M16.12 Unilateral primary osteoarthritis, left hip
CPT/HCPCS: 73502

== ENCOUNTER 2025-03-27 08:09 | Outpatient (CLI) | payer MEDICARE, OTHER, SELFPAY ==
[2023-05-09 10:01] VITALS: BMI 40.7
[2025-03-27 08:50] VITALS: BP 126/61; PULSE 72; RESP 16; TEMP 37.1; O2SAT 97
[2025-03-27 09:09] VITALS: BP 152/75; PULSE 85; RESP 15; O2SAT 96
[2025-03-27] MEDS: LIDOCAINE 1% (PF) 5 ML 10 ML INJ (09:12)
[2025-03-27 09:21] VITALS: BP 117/57; PULSE 76; RESP 14; O2SAT 98
--- NOTE | 2025-03-27 11:59 | PM.PROC.IR.1 ---
Date/Time/Diagnoses Date of procedure: 03/27/25 Time of procedure: 09:00 Pre-procedure diagnosis: Sacroiliitis, sacroiliac joint pain Post-procedure diagnosis: same Procedure Notes Procedure: Left sacroiliac joint injection Indications: Sacroiliitis, sacroiliac joint pain Physician: Clayton Scott Total sedation minutes: 0 Complications: none Procedure in detail & Post-procedure care: Patient is here for the planned procedure today as noted. No significant change since the last office visit. For additional clinical scenario please see those office notes. Focused exam: Vital signs reviewed as charted on intake. Gen: Well developed. No acute distress. CV: RRR, no M/R/G Chest: Non-labored breathing, CTAB. Psych: Alert and well-oriented. Mood/Affect: normal. Patient suitable for the planned procedure today: Yes === The following procedure was performed today: Sacroiliac joint injection with fluoroscopic guidance ([id number]) Approach: Posterior, inferior pole Laterality: Left Soft tissue: [1% lidocaine 1.5 mL] Injectate: [1 mL of methylprednisolone (40mg/mL) in 2 mL 1% lidocaine] Fluoroscopy Agent: Isovue 300-M 1 mL Notes: 3.5 in 22 gauge spinal needle utilized and adequate. Preprocedure pain 5/10, postprocedure pain 0/10. Procedure: Informed consent was obtained and all patient questions were answered. After discussing the risks, benefits, and alternatives to the procedure, the patient expressed understanding and wished to proceed. The patient was brought to the procedure suite and placed in the prone position, and prepped and draped in a sterile fashion. A pre-procedural pause was conducted to verify: correct patient identity, procedure to be performed and as applicable, correct side and site, correct patient position, and any special requirements. The fluoroscopic C-arm was positioned for optimal visualization of the targeted sacroiliac (SI) joint. The inferior portion of the SI joint was localized under fluoroscopic visualization and local anesthetic was utilized for soft tissue local anesthesia. A 22 gauge spinal needle was inserted into the fluoroscopically hyperlucent region within the SI joint. Aspiration negative. If noted above, the noted contrast agent was injected and a partial arthrogram was obtained. Multiplanar imaging was performed for confirmation and appropriate images were saved. The steroid/anesthetic solution noted above was then injected into the SI joint. The patient tolerated the procedure well and was discharged after an appropriate period of observation. If there are any complications or concerns, the patient was instructed to call us. The patient is to follow-up with the ordering provider in 2-3 weeks/as planned. This note was compiled using voice recognition software and therefore may contain typos. Please contact the author with any questions or concerns.
== END 2025-03-27 09:24 | disposition home or self-care (01) ==
LOC: RAD 08:10
PROVIDERS: Visit Provider Physical Medicine & Rehabilitation
DX: M46.1 Sacroiliitis, not elsewhere classified (principal); M53.3 Sacrococcygeal disorders, not elsewhere classified
CPT/HCPCS: 27096; 77002; J1010